=== PATIENT | female | born 1965 | race Caucasian/White ===

== ENCOUNTER 2018-07-27 14:45 | Inpatient (IN) | payer OTHER ==
[2018-07-27 14:53] VITALS: BMI 39.0
[2018-07-27] MEDS ORDERED: ALBUTEROL SO4 2.5/IPRATROPIUM 0.5 INH SOL 3 ML VIAL.NEB. NEB ONE ×3 (15:07→16:13)
[2018-07-27] MEDS ORDERED: methylPREDNISolone NA SUCC 125 MG/2 ML VIAL IVPB ONE (15:11)
[2018-07-27] MEDS: ALBUTEROL SO4 2.5/IPRATROPIUM 0.5 INH SOL 3 ML VIAL.NEB. NEB SCH ×4 (15:16→16:10)
[2018-07-27] MEDS ORDERED: methylPREDNISolone NA SUCC 125 MG/2 ML VIAL ONE (15:17)
[2018-07-27 15:32] LABS: BASO % 0.8 % (0-2.0); EOS % 2.6 % (0-4.5); HEMATOCRIT 38.9 % (32.4-45.2); HEMOGLOBIN 12.9 GM/dL (10.7-15.3); LYMPH % 25.2 % (8-40); MCH 27.8 pg (25.7-33.7); MCHC 33.2 g/dl (32.0-36.0); MEAN CELL VOLUME 83.6 fl (80-96); MEAN PLT VOLUME 8.1 fl (7.5-11.1); MONO % 5.3 % (3.8-10.2); NEUT % 66.1 % (42.8-82.8); PLATELET COUNT 265 K/MM3 (134-434); RBC 4.65 M/mm3 (3.60-5.2); RDW 16.2 % (11.6-15.6); WHITE BLOOD COUNT 10.6 K/mm3 (4.0-10.0)
--- NOTE | 2018-07-27 15:52 | PDOC ---
History of Present Illness - General Chief Complaint: Lightheaded Stated Complaint: DIZZINESS Time Seen by Provider: 07/27/18 14:59 History Source: Patient Exam Limitations: No Limitations - History of Present Illness Initial Comments: 07/27/18 15:24 Patient is 52F with history of asthma (hx of hospitalization, no icu, no intubations) here today complaining of shortness of breath that started last night. Patient also complains of feeling lightheaded after breathing rapidly. Endorses fevers, chills, nausea. Denies vomiting. Endorses chest pain and bodyaches. No sick contacts. No CHF history. Endorses leg swelling. Denies dysuria. Patient is active smoker. Past History - Past Medical History Allergies/Adverse Reactions: Allergies Allergy/AdvReac Type Severity Reaction Status Date / Time No Known Allergies Allergy Verified 07/27/18 14:52 Asthma: Yes COPD: No Psychiatric Problems: Yes (anxiety) Other medical history: arthritis - Suicide/Smoking/Psychosocial Hx Smoking History: Current every day smoker Number of Cigarettes Smoked Daily: 5 Information on smoking cessation initiated: No Review of Systems - Review of Systems Able to Perform ROS?: Yes Comments:: 07/27/18 15:52 GENERAL/CONSTITUTIONAL: +fever +chills. No weakness. HEAD, EYES, EARS, NOSE AND THROAT: No change in vision. No sore throat. CARDIOVASCULAR: +chest pain +shortness of breath RESPIRATORY: +cough, +wheezing, no hemoptysis. GASTROINTESTINAL: No nausea, vomiting, diarrhea or constipation. GENITOURINARY: No dysuria, frequency, or change in urination. MUSCULOSKELETAL: No joint or muscle swelling or pain. No neck or back pain. SKIN: No rash NEUROLOGIC: No headache, vertigo, loss of consciousness, or change in strength/ sensation. ALLERGIC/IMMUNOLOGIC: No hives or skin allergy. *Physical Exam - Vital Signs Last Vital Signs Temp Pulse Resp BP Pulse Ox 98.8 F 118 H 18 108/67 80 L 07/27/18 14:47 07/27/18 14:47 07/27/18 14:47 07/27/18 14:47 07/27/18 14:47 - Physical Exam Comments: 07/27/18 15:53 GENERAL: Awake, alert, and fully oriented, in no acute distress HEAD: No signs of trauma, normocephalic, atraumatic EYES: PERRLA, EOMI, sclera anicteric, conjunctiva clear ENT: Auricles normal inspection, hearing grossly normal, nares patent, oropharynx clear without exudates. Moist mucosa NECK: Normal ROM, supple, no lymphadenopathy, JVD, or masses LUNGS: No distress, speaks full sentences, wheezing and crackles bilaterally HEART: Regular rate and rhythm, normal S1 and S2, no murmurs, rubs or gallops, peripheral pulses normal and equal bilaterally. ABDOMEN: Soft, nontender, normoactive bowel sounds. No guarding, no rebound. No masses EXTREMITIES: Normal inspection, Normal range of motion, 2+ edema. No clubbing or cyanosis. NEUROLOGICAL: Cranial nerves II through XII grossly intact. Normal speech, normal gait, no focal sensorimotor deficits SKIN: Warm, Dry, normal turgor, no rashes or lesions noted. Moderate Sedation - Procedure Monitoring Vital Signs: Procedure Monitoring Vital Signs Temperature 98.8 F 07/27/18 14:47 Pulse Rate 118 H 07/27/18 14:47 Respiratory Rate 18 07/27/18 14:47 Blood Pressure 108/67 07/27/18 14:47 O2 Sat by Pulse Oximetry (%) 80 L 07/27/18 14:47 ED Treatment Course - LABORATORY CBC & Chemistry Diagram: 07/27/18 15:23 07/27/18 15:23 - RADIOLOGY Radiology Studies Ordered: Category Date Time Status CHEST X-RAY PORTABLE* [RAD] Stat Radiology 07/27/18 15:11 Ordered - Medications Given in the ED: ED Medications Discontinued Medications Generic Name Dose Route Start Last Admin Trade Name Freq PRN Reason Stop Dose Admin Methylprednisolone Sodium Succinate 125 mg 07/27/18 15:11 07/27/18 15:22 Solu-Medrol - IVPB 07/27/18 15:12 125 mg ONCE ONE Administration Medical Decision Making - Medical Decision Making 07/27/18 15:53 Patient is 52F with history of asthma here today with shortness of breath. Vitals notable for tachycardia during triage, normal HR during my exam. DDx includes, but is not limited to: asthma/copd, acs, chf, pneumonia, influenza. Will evaluate with cardiac labs, bnp, cxr. Will treat with duonebs and steroids. 07/27/18 16:40 CBC normal. CMP shows K 5.3, bnp elevated, cxr shows evidence of chf. Given lasix 20mg as she is lasix naive. D/w Dr Maynard, accepted to tele. 07/27/18 16:41 EKG shows sinus tach with rate of 102. No st elevations/depressions. Normal axis. No significant t wave abnormalities. Normal intervals. *DC/Admit/Observation/Transfer Diagnosis at time of Disposition: New onset of congestive heart failure - Discharge Dispostion Condition at time of disposition: Stable Decision to Admit order: Yes - Referrals - Patient Instructions - Post Discharge Activity
[2018-07-27 15:55] LABS: INR 1.08 (0.83-1.09); PROTHROMBIN TIME (PATIENT) 12.7 SEC (9.7-13.0)
[2018-07-27 15:57] LABS: ALBUMIN 2.9 g/dl (3.4-5.0); ALK PHOS 107 U/L (45-117); ANION GAP 3 MMOL/L (8-16); BILIRUBIN,TOTAL 0.3 mg/dL (0.2-1); BLOOD UREA NITROGEN 14 mg/dL (7-18); CALCIUM 8.4 mg/dL (8.5-10.1); CHLORIDE 98 mmol/L (98-107); CO2 35 mmol/L (21-32); CREATININE 0.4 mg/dL (0.55-1.3); GLUCOSE,RANDOM 110 mg/dL (74-106); N-TERMINAL BNP 809.6 pg/ml (5-125); POTASSIUM 5.3 mmol/L (3.5-5.1); SGOT/AST 37 U/L (15-37); SGPT/ALT 19 U/L (13-61); SODIUM 136 mmol/L (136-145); TOT PROT 7.4 g/dl (6.4-8.2)
--- NOTE | 2018-07-27 16:10 | PDOC ---
Attending Attestation - Resident Resident Name: EdithAlber - ED Attending Attestation I have performed the following: I have examined & evaluated the patient, The case was reviewed & discussed with the resident, I agree w/resident's findings & plan, Exceptions are as noted - HPI HPI: 07/27/18 16:10 The patient is a 52 year old female, with a significant past medical history of asthma, who presents to the emergency department with SOB and lightheadedness since last night. Pt endorses BLE swelling. Denies recent travel/ immobilization. Endorses intermittent chest pain as well. She denies recent fevers, chills, headache or dizziness. She denies recent nausea, vomit, diarrhea or constipation. She denies recent dysuria, frequency, urgency or hematuria. Allergies: NKDA - Physicial Exam PE: 07/27/18 16:11 "GENERAL: Awake, alert, and fully oriented, in no acute distress. HEAD: No signs of trauma EYES: PERRLA, EOMI, sclera anicteric, conjunctiva clear ENT: Auricles normal inspection, hearing grossly normal, nares patent, oropharynx clear without exudates. Moist mucosa NECK: Nontender, no stepoffs, Normal ROM, supple, no lymphadenopathy, JVD, or masses LUNGS: + bibasilar rales + wheezing HEART: Regular rate and rhythm, normal S1 and S2, no murmurs, rubs or gallops ABDOMEN: Soft, nontender, normoactive bowel sounds. No guarding, no rebound. No masses EXTREMITIES: +2 PE BLE, Normal range of motion, no edema. No clubbing or cyanosis. No cords, erythema, or tenderness NEUROLOGICAL: Cranial nerves II through XII intact. 5/5 strength and sensation in all extremities, Normal speech, normal gait, normal cerebellar function SKIN: Warm, Dry, normal turgor, no rashes or lesions noted. - Medical Decision Making 07/27/18 16:11 52 F with SOB, chest pain, and BLE swelling. Exam notable for pitting edema in both legs, as well as bibasilar rales. Suspicious for new CHF. Pt also with wheezing, likely 2/2 asthma/COPD. - labs, BNP, trop - CXR - Nebs - Lasix - Admit
[2018-07-27] MEDS ORDERED: FUROSEMIDE 40 MG/4 ML INJECTABLE VIAL IVPUSH ONE (16:19)
[2018-07-27] MEDS ORDERED: FUROSEMIDE 40 MG/4 ML INJECTABLE VIAL ONE (16:46)
--- NOTE | 2018-07-27 17:46 | HP ---
CHIEF COMPLAINT: SOB PCP: [facility] HISTORY OF PRESENT ILLNESS: 52 y/o F w/PMH of anxiety, RA, asthma, diabetes, hx of opioid addiction on methadone presents to the ER with SOB that started suddenly 2 days ago and has been progressively worsening. She also reports dry cough, fevers, body aches, chest tightness with no radiation, fevers, chills, nausea, but no vomiting, increased UE and LE swelling. The LE swelling started 4 days ago and has been progressively worsening as well. She also has the SOB at both rest and with exertion and last night was not able to lay flat due to SOB and needed to sleep in a seated position. She also c/o severe LIZAMA. She denies any recent travel or sick contacts. ER course was notable for: (1) Duoneb X4, Lasix IV 20 mg, Solu-medrol 125 mg (2) CXR (3) Recent Travel: Denies PAST MEDICAL HISTORY:anxiety, RA, asthma, diabetes, hx of opioid addiction on methadone PAST SURGICAL HISTORY: Denies Social History: Smoking: current everyday smoker. Smokes 1 pack every 5-6 days for approx last 15 years. Alcohol: Denies Drugs: Denies Family History: Denies Allergies No Known Allergies Allergy (Verified 07/27/18 14:52) HOME MEDICATIONS: Home Medications Medication Instructions Recorded Budesonide/Formeterol Fumarate 1 puff IN DAILY 07/27/18 [SYMBICORT 160/4.5mcg -] Paroxetine HCl [Paxil] 20 mg PO DAILY 07/27/18 Risperidone 2 mg PO BID 07/27/18 REVIEW OF SYSTEMS CONSTITUTIONAL: +fevers, chills, generalized weakness HEENT: +visual changes from "funny feeling around eyes" CARDIOVASCULAR: +chest tightness, peripheral edema RESPIRATORY: +cough, sob, KELLOGG, orthopnea, wheezing GASTROINTESTINAL: +mild abd pain, nausea, constipation Absent: vomiting GENITOURINARY: +frequency Absent: dysuria, hematuria MUSCULOSKELETAL: +body aches NEUROLOGIC: +headache PHYSICAL EXAMINATION Vital Signs - 24 hr 07/27/18 07/27/18 07/27/18 14:47 16:00 17:18 Temperature 98.8 F 98.8 F Pulse Rate 118 H Pulse Rate [ 118 H Apical] Respiratory 18 22 H Rate Blood Pressure 108/67 Blood Pressure 117/91 [Left Arm] O2 Sat by Pulse 80 L 98 99 Oximetry (%) GENERAL: Awake, alert, and fully oriented, in no acute distress. Speaking in complete sentences. HEAD: Normal with no signs of trauma. EYES: Pupils equal, round and reactive to light, extraocular movements intact, sclera anicteric, conjunctiva clear. EARS, NOSE, THROAT: Ears normal, nares patent, oropharynx clear without exudates. NECK: Normal range of motion, supple. No LAD. LUNGS: B/L wheezing and crackles HEART: Tachycardic, S1 S2, difficult to appreciate murmurs over wheezing. ABDOMEN: Soft, mild diffuse tenderness, not distended, normoactive bowel sounds MSK: 5/5 UE and LE strength UPPER EXTREMITIES: increased fluid retention in b/l UE. Pus filled lesions on arms and axillary areas. LOWER EXTREMITIES: warm, well-perfused. No calf tenderness. 2+ pitting b/l LE edema NEUROLOGICAL: Cranial nerves II-XII grossly intact. Normal speech. Gait not observed. PSYCHIATRIC: Cooperative. Good eye contact. Appropriate mood and affect. SKIN: Warm, dry Laboratory Results - last 24 hr 07/27/18 07/27/18 07/27/18 15:23 15:23 15:23 WBC 10.6 H RBC 4.65 Hgb 12.9 Hct 38.9 MCV 83.6 MCH 27.8 MCHC 33.2 RDW 16.2 H Plt Count 265 MPV 8.1 Absolute Neuts (auto) 7.0 Neutrophils % 66.1 Lymphocytes % 25.2 Monocytes % 5.3 Eosinophils % 2.6 Basophils % 0.8 Nucleated RBC % 0 PT with INR 12.70 INR 1.08 Sodium 136 Potassium 5.3 H Chloride 98 Carbon Dioxide 35 H Anion Gap 3 L BUN 14 Creatinine 0.4 L Creat Clearance w eGFR > 60 Random Glucose 110 H Calcium 8.4 L Magnesium 2.0 Total Bilirubin 0.3 AST 37 ALT 19 Alkaline Phosphatase 107 Creatine Kinase 206 H Creatine Kinase Index 1.4 CK-MB (CK-2) 2.9 Troponin I < 0.02 B-Natriuretic Peptide 809.6 H Total Protein 7.4 Albumin 2.9 L Influenza A (Rapid) Influenza B (Rapid) 07/27/18 15:23 WBC RBC Hgb Hct MCV MCH MCHC RDW Plt Count MPV Absolute Neuts (auto) Neutrophils % Lymphocytes % Monocytes % Eosinophils % Basophils % Nucleated RBC % PT with INR INR Sodium Potassium Chloride Carbon Dioxide Anion Gap BUN Creatinine Creat Clearance w eGFR Random Glucose Calcium Magnesium Total Bilirubin AST ALT Alkaline Phosphatase Creatine Kinase Creatine Kinase Index CK-MB (CK-2) Troponin I B-Natriuretic Peptide Total Protein Albumin Influenza A (Rapid) Negative Influenza B (Rapid) Negative CXR: B/L angles not clearly visualized/blunted. Fullness in hilum. B/l congestive changes. Pending official read EKG: Sinus tachycardia @ 102bpm. QTc 484 ms ASSESSMENT/PLAN: 52 y/o F w/PMH of anxiety, RA, asthma, diabetes presents to the ER with SOB that started suddenly 2 days ago and has been progressively worsening. Admitted for possible new onset CHF w/acute asthma exacerbation and to r/o nephrotic syndrome. CALLED patients pharmacy but the pharmacy is closed. Will need to med rec when pharmacy or [facility] is open. I have also told the patient and her son to bring her list of medications in as soon as possible. -SOB secondary to possible new onset CHF vs viral URI w/superimposed asthma exacerbation -Lasix 40 mg IV qd -Solumedrol 40 mg bid -Duonebs standing and PRN -RSV and respiratory viral panel -tylenol for fever or pain -Echo -cardiology consult -fluid restriction -trend trop, initial negative -Peripheral edema -secondary to new onset CHF vs nephrotic syndrome -Albumin low at 2.9 -UA, urine protein to Cr ratio -Severe headache -Tylenol PRN -Head CT -Hidradenitis Suppurativa -Axillary region -Surgery consult for possible I&D -Diabetes -A1C -ISS, BGMS ACHS -Anxiety/Depression -c/w paroxetine, risperidone -DVT ppx -Lovenox -FEN -No fluids -Hyperkalemia, will repeat BMP s/p duonebs. If elevated will give kayexelate -Low salt diet -Dispo: Admit to tele Visit type - Emergency Visit Emergency Visit: Yes Care time: The patient presented to the Emergency Department on the above date and was hospitalized for further evaluation of their emergent condition. - New Patient This patient is new to me today: Yes Date on this admission: 07/27/18 - Critical Care Critical Care patient: No
--- NOTE | 2018-07-27 17:51 | PN ---
Teaching Attending Note Name of Resident: Jean Maynard ATTENDING PHYSICIAN STATEMENT I saw and evaluated the patient. I reviewed the resident's note and discussed the case with the resident. I agree with the resident's findings and plan as documented. SUBJECTIVE: CC: SOB and swelling HPI: 52 y/o lady with h/o Asthma, Anxiety, and arthritis, who presented with SOB x 2 days. she has been having gradual worsening in SOB and LE edema x 1 week. with dry cough. yesterday it got worse and inhalers did not work. she reports increase in her weight over past month or so, and reports worsening swelling in her hands and arms. she had a fever of 101 yesterday. active smoker and compliant with her meds. she sleeps on 3 pillows and this is chronic she reports urinating a lot , but no dysuria. she has LIZAMA that started yesterday 03/13 , with no double vision but blurry vision. has no weakness, numbness or tingling. reports no abd pain. Has pumps on her elbows that fills up with pus and her son pops them. she also has similar lesions in her axillary areas . OBJECTIVE: NAD , awake,alert and oriented x 3. HEENT: symmetric face, no facial droop. erythematous oropharynx .no tonsils . MMM, slight fullness in jugular veins. No lymphadenopathy in submandibular area and jugular chains. has enlarged lymph node ( 1cm ) in L supraclavicular area , non tender and mobile under skin CV: RRR, + hepato jugular reflux Lungs : course breath sounds, wheezing and fine crackles at bases ext : 2+ edema on LE , ciara scaly skin on feet with scratch meek. hand edema. papular rash on posterior upper arms and scratch meek. cystic lesion 2x1 cm on R elbow with a scab , with 2 smaller similar lesions on L elbow. Axillary areas with thick skin, non draining old opening, no erythema and no tenderness. neuro : EOMi, round equal pupils,m reactive to light , no facial droop, tongue and uvula at mid line . strength 5/5 in upper and lower extremities proximally and distally. reflexes 2+ knee jerl and biceps b/l ASSESSMENT AND PLAN: 52 y/o lady with h/o Asthma, Anxiety, and arthritis ( no specific diagnosis ) ,h /o drug use , on methadone and active smoker who presented with SOB x 2 days. 1- SOB : likely due to combination of Asthma exacerbation, and fluid overload. Fluid overload could be due to acute heart failure ( core pulmonale, or viral cardiomyopathy), or due to nephrotic syndrome. EKG with sinus rhythm, RBBB, and L axis . No ST or TW changes.Cxray reviewed. hilar congestion, possible small R pleural effusion, and cephalization. final report to follow she responded to steroids and lasix in ER. - give solu-Merdol 40 BID - Nebs - echo - lasix 40 daily. - rapid flu neg, check RVP - r/o nephrotic syndrome, check UA , and Protein /Cr . - Trend trop . low suspicion for ACS 2- Hyperkalemia: unclear etiology. will confirm her edu meds list and evaluate for possible medication side effects. - repeat K, if cont to increase will treat - nebs will help 3- Skin abscesses on arms: will start clinda and ask sx to drain, and send for culture. clinda will help resolving hydradenitis suppurativa . 4- LIZAMA ; new, severe, nL neuro exam. check head CT. give tylenol for pain 5- L supraclavicular lymph node. she was advised to follow with GI for EGd to r /o any gastric origin ( malignancy ). Anxiety: cont her meds 4- DVT px : will start lovenox if CT is neg for bleed
[2018-07-27] MEDS ORDERED: ACETAMINOPHEN 325 MG TABLET (FP) PO ONE (18:02)
[2018-07-27] MEDS ORDERED: ALBUTEROL SO4 2.5/IPRATROPIUM 0.5 INH SOL 3 ML VIAL.NEB. NEB PRN (18:09)
[2018-07-27] MEDS ORDERED: CLINDAMYCIN 300 MG PREMIX IVPB 300 MG/50 ML BAG IVPB SCH (19:00)
[2018-07-27] MEDS ORDERED: CLINDAMYCIN IVPB 300 MG in DEXTROSE 5%-WATER - 48 ML IVPB SCH (19:00)
--- NOTE | 2018-07-27 21:57 | EKG ---
Test Reason : Blood Pressure : / mmHG Vent. Rate : 102 BPM Atrial Rate : 102 BPM P-R Int : 140 ms QRS Dur : 082 ms QT Int : 372 ms P-R-T Axes : 054 041 035 degrees QTc Int : 484 ms SINUS TACHYCARDIA POSSIBLE LEFT ATRIAL ENLARGEMENT BORDERLINE ECG NO PREVIOUS ECGS AVAILABLE Confirmed by ANAYA OCAMPO MD ([id number]) on 07/27/2018 9:56:59 PM Referred By: Confirmed By:ANAYA OCAMPO MD
[2018-07-27] MEDS ORDERED: risperiDONE 2 MG TABLET PO SCH (22:00)
[2018-07-27] MEDS ORDERED: CLINDAMYCIN HCL 300 MG CAPSULE PO SCH (22:00)
[2018-07-27] MEDS ORDERED: IBUPROFEN 400 MG TABLET (FP) PO ONE (23:41)
[2018-07-28] MEDS: risperiDONE 1 MG TABLET (FP) PO SCH ×3 (00:14→22:11)
[2018-07-28] MEDS: methylPREDNISolone NA SUCC 125 MG/2 ML VIAL IVPUSH SCH ×3 (00:15→23:13)
[2018-07-28] MEDS: INSULIN SLIDING SCALE (NOVOLOG) 1 VIAL SQ SCH ×5 (00:20→23:12)
[2018-07-28] MEDS ORDERED: PT OWN MED DRAWER 7, Y5N ONE (06:45)
[2018-07-28] MEDS: CLINDAMYCIN HCL 150 MG CAPSULE (FP) PO SCH ×3 (06:51→22:11)
[2018-07-28 06:59] LABS: BASO % 0.2 % (0-2.0); HEMATOCRIT 37.4 % (32.4-45.2); HEMOGLOBIN 12.1 GM/dL (10.7-15.3); LYMPH % 9.1 % (8-40); MCH 26.9 pg (25.7-33.7); MCHC 32.4 g/dl (32.0-36.0); MEAN PLT VOLUME 8.1 fl (7.5-11.1); MONO % 2.6 % (3.8-10.2); NEUT % 88.1 % (42.8-82.8); PLATELET COUNT 270 K/MM3 (134-434); RDW 16.2 % (11.6-15.6); WHITE BLOOD COUNT 10.8 K/mm3 (4.0-10.0)
[2018-07-28 07:39] LABS: ALBUMIN 2.8 g/dl (3.4-5.0); ALK PHOS 111 U/L (45-117); ANION GAP 4 MMOL/L (8-16); BILIRUBIN,TOTAL 0.3 mg/dL (0.2-1); BLOOD UREA NITROGEN 13 mg/dL (7-18); CALCIUM 8.4 mg/dL (8.5-10.1); CHLORIDE 97 mmol/L (98-107); CO2 37 mmol/L (21-32); CREATININE 0.5 mg/dL (0.55-1.3); GLUCOSE,RANDOM 163 mg/dL (74-106); MAGNESIUM 1.9 mg/dL (1.8-2.4); PHOSPHOROUS 2.6 mg/dL (2.5-4.9); POTASSIUM 4.3 mmol/L (3.5-5.1); SGOT/AST 10 U/L (15-37); SGPT/ALT 16 U/L (13-61); SODIUM 138 mmol/L (136-145); TOT PROT 6.9 g/dl (6.4-8.2)
[2018-07-28] MEDS: ALBUTEROL SO4 2.5/IPRATROPIUM 0.5 INH SOL 3 ML VIAL.NEB. NEB SCH ×4 (08:20→23:12)
[2018-07-28] MEDS ORDERED: ENOXAPARIN NA (PORCINE) 40 MG/0.4 ML DISP.SYRIN SQ SCH (10:00)
[2018-07-28 10:10] LABS: URINE APPEARANCE CLEAR; URINE BILIRUBIN NEGATIVE (<2.0 mg/dL); URINE COLOR YELLOW; URINE GLUCOSE (UA) NEGATIVE (NEGATIVE); URINE KETONE NEGATIVE (NEGATIVE); URINE LEUK ESTERASE NEGATIVE (NEGATIVE); URINE NITRITE NEGATIVE (NEGATIVE); URINE PROTEIN NEGATIVE (NEGATIVE)
[2018-07-28 10:14] LABS: RATIO URIN PROTEIN/URIN CREAT 0.23 MG/DL
[2018-07-28 10:23] LABS: COCAINE, UR NEGATIVE ng/ml (CUTOFF=300); OPIATES, URI NEGATIVE ng/ml (CUTOFF=300); PHENCYCLIDINE,URINE NEGATIVE ng/ml (CUTOFF=25); URINE AMPHETAMINES NEGATIVE ng/ml (CUTOFF=500); URINE BARBITURATES NEGATIVE ng/ml (CUTOFF=200)
[2018-07-28] MEDS: FUROSEMIDE 40 MG/4 ML INJECTABLE VIAL IVPUSH SCH ×2 (10:24→12:39)
[2018-07-28] MEDS: PARoxetine HCL 20 MG TABLET (FP) PO SCH (10:24)
[2018-07-28 10:29] LABS: METHADONE, UR POSITIVE ng/ml (CUTOFF=300); URINE BENZODIAZEPINES POSITIVE ng/ml (CUTOFF=200)
[2018-07-28] MEDS ORDERED: METHADONE HCL 10 MG TABLET PO ONE (10:58)
[2018-07-28] MEDS ORDERED: METHADONE 40 MG, METHADONE 10 MG, METHADONE 5 MG PO ONE (11:30)
[2018-07-28] MEDS ORDERED: METHADONE HCL 5 MG TABLET ONE (11:31)
[2018-07-28] MEDS ORDERED: METHADONE HCL 40 MG DISPERSABLE TABLET ONE (11:31)
[2018-07-28] MEDS ORDERED: METHADONE HCL 10 MG TABLET ONE (11:32)
[2018-07-28] MEDS ORDERED: FUROSEMIDE 20 MG TABLET (FP) PO ONE (11:36)
--- NOTE | 2018-07-28 12:53 | CON.CARD ---
Consult Consult Specialty:: cardiology Referred by:: Silviano Reason for Consultation:: Shortness of breath - History of Present Illness Chief Complaint: Shortness of breath History of Present Illness: The patient is a 52-year-old obese female, with a history of mild asthma, likely diabetes, now presenting with generalized body aches, cough, shortness of breath, fevers and lethargy. The patient is in mild respiratory distress. Also reported periods of chest tightness and pressure and discomfort. The patient leads a sedentary lifestyle. She reports no chest pains on effort. Only chronic dyspnea on effort. - History Source History Provided By: Patient, Medical Record Limitations to Obtaining History: No Limitations - Past Medical History Pulmonary: Yes: Asthma - Alcohol/Substance Use Hx Alcohol Use: No - Smoking History Smoking history: Current every day smoker Have you smoked in the past 12 months: Yes Aproximately how many cigarettes per day: 5 Home Medications - Allergies Allergies/Adverse Reactions: Allergies Allergy/AdvReac Type Severity Reaction Status Date / Time No Known Allergies Allergy Verified 07/27/18 14:52 - Home Medications Home Medications: Ambulatory Orders Budesonide/Formeterol Fumarate [SYMBICORT 160/4.5mcg -] 1 puff IN DAILY Methadone [Dolophine -] 55 mg PO DAILY 07/27/18 Paroxetine HCl [Paxil] 20 mg PO DAILY 07/27/18 Risperidone 2 mg PO BID 07/27/18 Review of Systems - Review of Systems Constitutional: reports: Chills, Fever, Lethargy, Malaise Eyes: reports: No Symptoms HENT: reports: No Symptoms Neck: reports: No Symptoms Cardiovascular: reports: Shortness of Breath Respiratory: reports: Cough, SOB Gastrointestinal: reports: Bloating Genitourinary: reports: No Symptoms Breasts: reports: No Symptoms Reported Musculoskeletal: reports: Back Pain Integumentary: reports: No Symptoms Neurological: reports: No Symptoms Endocrine: reports: No Symptoms Hematology/Lymphatic: reports: No Symptoms Psychiatric: reports: No Symptoms Vital Signs: Vital Signs Temperature 98 F 07/28/18 09:36 Pulse Rate 103 H 07/28/18 09:36 Respiratory Rate 20 07/28/18 09:36 Blood Pressure 116/68 07/28/18 09:36 O2 Sat by Pulse Oximetry (%) 99 07/27/18 19:00 Constitutional: Yes: No Distress, Obese Eyes: Yes: WNL, Conjunctiva Clear, EOM Intact HENT: Yes: WNL, Atraumatic, Normocephalic Neck: Yes: WNL, Supple, Trachea Midline Respiratory: Yes: Regular, Rhonchi, SOB, Wheezes Gastrointestinal: Yes: WNL, Normal Bowel Sounds, Soft Renal/: Yes: WNL Cardiovascular: Yes: WNL, Regular Rate and Rhythm, Tachycardia JVD: No Carotid Bruit: No PMI: Non-Displaced Heart Sounds: Yes: S1, S2 Murmur: Yes: Systolic Murmur, Grade 2 Musculoskeletal: Yes: Back Pain, Joint Stiffness Extremities: Yes: WNL Edema: Yes Edema: LLE: Trace, RLE: Trace Peripheral Pulses WNL: Yes Integumentary: Yes: WNL Neurological: Yes: WNL, Alert, Oriented ...Motor Strength: WNL - Other Data Labs, Other Data: CBC, BMP 07/28/18 05:30 07/28/18 05:30 INR, PTT INR 1.08 (0.83-1.09) 07/27/18 15:23 Troponin, BNP 07/27/18 15:23 Troponin I < 0.02 B-Natriuretic Peptide 809.6 H Troponin, BNP 07/27/18 15:23 Troponin I < 0.02 B-Natriuretic Peptide 809.6 H Assessment/Plan The patient is a 52-year-old obese female, with a history of mild asthma, likely diabetes, now presenting with generalized body aches, cough, shortness of breath, fevers and lethargy. The patient is in mild respiratory distress. Also reported periods of chest tightness and pressure and discomfort. The patient leads a sedentary lifestyle. She reports no chest pains on effort. Only chronic dyspnea on effort. There is no evidence of ischemia nor acute coronary syndrome. No CHF. The patient is in sinus tachycardia. There are no acute ECG changes. Incomplete right bundle branch block noted. Please arrange for pulmonary evaluation. Obtain echo. Continue current regimen. Continue telemetry for the time being. The patient is stable from the cardiac standpoint.
--- NOTE | 2018-07-28 14:56 | PN ---
Progress Note (short form) - Note Progress Note: Subjective: SOB is better, no fever or chills, no CP. anxious and wants her methadone and psych meds and request pain meds Objective: Vital Signs: Last Vital Signs Temp Pulse Resp BP Pulse Ox 98 F 103 H 20 116/68 93 L 07/28/18 09:36 07/28/18 09:36 07/28/18 09:36 07/28/18 09:36 07/28/18 09:00 Laboratory Results - last 24 hr 07/27/18 07/27/18 07/27/18 15:23 15:23 15:23 WBC 10.6 H RBC 4.65 Hgb 12.9 Hct 38.9 MCV 83.6 MCH 27.8 MCHC 33.2 RDW 16.2 H Plt Count 265 MPV 8.1 Absolute Neuts (auto) 7.0 Neutrophils % 66.1 Lymphocytes % 25.2 Monocytes % 5.3 Eosinophils % 2.6 Basophils % 0.8 Nucleated RBC % 0 PT with INR 12.70 INR 1.08 Sodium 136 Potassium 5.3 H Chloride 98 Carbon Dioxide 35 H Anion Gap 3 L BUN 14 Creatinine 0.4 L Creat Clearance w eGFR > 60 POC Glucometer Random Glucose 110 H Hemoglobin A1c % Calcium 8.4 L Phosphorus Magnesium 2.0 Total Bilirubin 0.3 AST 37 ALT 19 Alkaline Phosphatase 107 Creatine Kinase 206 H Creatine Kinase Index 1.4 CK-MB (CK-2) 2.9 Troponin I < 0.02 B-Natriuretic Peptide 809.6 H Total Protein 7.4 Albumin 2.9 L Urine Color Urine Appearance Urine pH Ur Specific [place] Urine Protein Urine Glucose (UA) Urine Ketones Urine Blood Urine Nitrite Urine Bilirubin Urine Urobilinogen Ur Leukocyte Esterase U Random Total Protein Ur Random Sodium Urine Creatinine Protein/Creatinin Ratio Opiates Screen Methadone Screen Barbiturate Screen Phencyclidine Screen Ur Amphetamines Screen MDMA (Ecstasy) Screen Benzodiazepines Screen Cocaine Screen U Marijuana (THC) Screen Influenza A (Rapid) Influenza B (Rapid) RSV Rapid 07/27/18 07/27/18 07/28/18 15:23 23:46 05:30 WBC 10.8 H RBC 4.50 Hgb 12.1 Hct 37.4 MCV 83.0 MCH 26.9 MCHC 32.4 RDW 16.2 H Plt Count 270 MPV 8.1 Absolute Neuts (auto) 9.6 H Neutrophils % 88.1 H D Lymphocytes % 9.1 D Monocytes % 2.6 L Eosinophils % 0.0 D Basophils % 0.2 Nucleated RBC % 0 PT with INR INR Sodium Potassium Chloride Carbon Dioxide Anion Gap BUN Creatinine Creat Clearance w eGFR POC Glucometer 281 Random Glucose Hemoglobin A1c % Calcium Phosphorus Magnesium Total Bilirubin AST ALT Alkaline Phosphatase Creatine Kinase Creatine Kinase Index CK-MB (CK-2) Troponin I B-Natriuretic Peptide Total Protein Albumin Urine Color Urine Appearance Urine pH Ur Specific [place] Urine Protein Urine Glucose (UA) Urine Ketones Urine Blood Urine Nitrite Urine Bilirubin Urine Urobilinogen Ur Leukocyte Esterase U Random Total Protein Ur Random Sodium Urine Creatinine Protein/Creatinin Ratio Opiates Screen Methadone Screen Barbiturate Screen Phencyclidine Screen Ur Amphetamines Screen MDMA (Ecstasy) Screen Benzodiazepines Screen Cocaine Screen U Marijuana (THC) Screen Influenza A (Rapid) Negative Influenza B (Rapid) Negative RSV Rapid 07/28/18 07/28/18 07/28/18 05:30 05:30 06:00 WBC RBC Hgb Hct MCV MCH MCHC RDW Plt Count MPV Absolute Neuts (auto) Neutrophils % Lymphocytes % Monocytes % Eosinophils % Basophils % Nucleated RBC % PT with INR INR Sodium 138 Potassium 4.3 Chloride 97 L Carbon Dioxide 37 H Anion Gap 4 L BUN 13 Creatinine 0.5 L Creat Clearance w eGFR > 60 POC Glucometer Random Glucose 163 H Hemoglobin A1c % 6.5 H Calcium 8.4 L Phosphorus 2.6 Magnesium 1.9 Total Bilirubin 0.3 AST 10 L ALT 16 Alkaline Phosphatase 111 Creatine Kinase Creatine Kinase Index CK-MB (CK-2) Troponin I B-Natriuretic Peptide Total Protein 6.9 Albumin 2.8 L Urine Color Yellow Urine Appearance Clear Urine pH 8.0 Ur Specific [place] 1.018 Urine Protein Negative Urine Glucose (UA) Negative Urine Ketones Negative Urine Blood Negative Urine Nitrite Negative Urine Bilirubin Negative Urine Urobilinogen 2.0 H Ur Leukocyte Esterase Negative U Random Total Protein Ur Random Sodium Urine Creatinine Protein/Creatinin Ratio Opiates Screen Methadone Screen Barbiturate Screen Phencyclidine Screen Ur Amphetamines Screen MDMA (Ecstasy) Screen Benzodiazepines Screen Cocaine Screen U Marijuana (THC) Screen Influenza A (Rapid) Influenza B (Rapid) RSV Rapid 07/28/18 07/28/18 07/28/18 06:00 06:00 06:24 WBC RBC Hgb Hct MCV MCH MCHC RDW Plt Count MPV Absolute Neuts (auto) Neutrophils % Lymphocytes % Monocytes % Eosinophils % Basophils % Nucleated RBC % PT with INR INR Sodium Potassium Chloride Carbon Dioxide Anion Gap BUN Creatinine Creat Clearance w eGFR POC Glucometer Random Glucose Hemoglobin A1c % Calcium Phosphorus Magnesium Total Bilirubin AST ALT Alkaline Phosphatase Creatine Kinase Creatine Kinase Index CK-MB (CK-2) Troponin I B-Natriuretic Peptide Total Protein Albumin Urine Color Urine Appearance Urine pH Ur Specific [place] Urine Protein Urine Glucose (UA) Urine Ketones Urine Blood Urine Nitrite Urine Bilirubin Urine Urobilinogen Ur Leukocyte Esterase U Random Total Protein 24.9 H Ur Random Sodium 74 Urine Creatinine 104.0 Protein/Creatinin Ratio 0.230 Opiates Screen Negative Methadone Screen Positive A* Barbiturate Screen Negative Phencyclidine Screen Negative Ur Amphetamines Screen Negative MDMA (Ecstasy) Screen Negative Benzodiazepines Screen Positive A* Cocaine Screen Negative U Marijuana (THC) Screen Negative Influenza A (Rapid) Influenza B (Rapid) RSV Rapid Negative 07/28/18 06:41 WBC RBC Hgb Hct MCV MCH MCHC RDW Plt Count MPV Absolute Neuts (auto) Neutrophils % Lymphocytes % Monocytes % Eosinophils % Basophils % Nucleated RBC % PT with INR INR Sodium Potassium Chloride Carbon Dioxide Anion Gap BUN Creatinine Creat Clearance w eGFR POC Glucometer 158 Random Glucose Hemoglobin A1c % Calcium Phosphorus Magnesium Total Bilirubin AST ALT Alkaline Phosphatase Creatine Kinase Creatine Kinase Index CK-MB (CK-2) Troponin I B-Natriuretic Peptide Total Protein Albumin Urine Color Urine Appearance Urine pH Ur Specific [place] Urine Protein Urine Glucose (UA) Urine Ketones Urine Blood Urine Nitrite Urine Bilirubin Urine Urobilinogen Ur Leukocyte Esterase U Random Total Protein Ur Random Sodium Urine Creatinine Protein/Creatinin Ratio Opiates Screen Methadone Screen Barbiturate Screen Phencyclidine Screen Ur Amphetamines Screen MDMA (Ecstasy) Screen Benzodiazepines Screen Cocaine Screen U Marijuana (THC) Screen Influenza A (Rapid) Influenza B (Rapid) RSV Rapid Physical Exam: NAD , awake,alert and oriented x 3. CV: RRR, no JVD Lungs : course breath sounds, wheezing , no crackles today ext : resolved edema on LE and hands . papular rash on posterior upper arms and scratch meek. cystic lesion 2x1 cm on R elbow with a scab , with 2 smaller similar lesions on L elbow. Axillary areas with thick skin, non draining old opening, no erythema and no tenderness. ASSESSMENT AND PLAN: 52 y/o lady with h/o Asthma, Anxiety, and arthritis ( no specific diagnosis ) ,h /o drug use , on methadone and active smoker who presented with SOB x 2 days. 1- Acute asthma exacerbation SOB: - cont steroids - cont nebs - add symbicort - follow RVP 2- Mild fluid overload, significantly responded to lasix, and edema has resolved. - give 20 mg of lasix today - holdlasix after this - echo pending - P/C ration of 230 mg /24 hr, no nephrotic syndrome - check TSH 3- hyperkalemia ; resolved 4- Skin abscesses on arms: cont clinda sx eval dfor drainage clinda will help resolving hydradenitis suppurativa . 5- LIZAMA ;resolved. CT of head neg 5- L supraclavicular lymph node. she was advised to follow with GI for EGd to r /o any gastric malignancy 6-Methadne dependence : cont methadone 55 mg daily 7- elevated sugars: check A1c 8- DVT px : start lovenox Visit type - Emergency Visit Emergency Visit: Yes ED Registration Date: 07/27/18 Care time: The patient presented to the Emergency Department on the above date and was hospitalized for further evaluation of their emergent condition. - New Patient This patient is new to me today: No - Critical Care Critical Care patient: No
[2018-07-28] MEDS: ENOXAPARIN NA (PORCINE) 40 MG/0.4 ML DISP.SYRIN SQ SCH (19:01)
[2018-07-28] MEDS: BUDESONIDE/FORMETEROL FUMARATE 160/4.5 mcg INHALER IH SCH (22:45)
[2018-07-29] MEDS: CLINDAMYCIN HCL 150 MG CAPSULE (FP) PO SCH ×3 (06:07→21:58)
[2018-07-29] MEDS: INSULIN SLIDING SCALE (NOVOLOG) 1 VIAL SQ SCH ×3 (06:08→17:04)
[2018-07-29] MEDS ORDERED: PT OWN MED DRAWER 7, Y5N ONE ×4 (06:38→21:25)
[2018-07-29 06:39] LABS: ANION GAP 1 MMOL/L (8-16); BLOOD UREA NITROGEN 17 mg/dL (7-18); CALCIUM 8.1 mg/dL (8.5-10.1); CHLORIDE 100 mmol/L (98-107); CO2 40 mmol/L (21-32); CREATININE 0.6 mg/dL (0.55-1.3); GLUCOSE,RANDOM 130 mg/dL (74-106); POTASSIUM 4.7 mmol/L (3.5-5.1); SODIUM 140 mmol/L (136-145)
[2018-07-29] MEDS: ALBUTEROL SO4 2.5/IPRATROPIUM 0.5 INH SOL 3 ML VIAL.NEB. NEB SCH (07:40)
--- NOTE | 2018-07-29 08:04 | PN ---
Physical Exam: SUBJECTIVE: Patient seen and examined at bedside- no acute events overnight; patient states her shortness of breath is improving however is still having some chest pressure OBJECTIVE: Vital Signs Period Temp Pulse Resp BP Sys/Ortiz Pulse Ox Last 24 Hr 98 F-98.9 F 94-121 18-20 106-136/42-82 91-93 GENERAL: The patient is awake, alert, and fully oriented, in no acute distress.. EYES: PEERLA; EOMI: no scleral icterus. NECK: no JVD; no lymphadenopathy. LUNGS:coarse breath sounds B/L; slight wheezes HEART: Regular rate and rhythm, S1, S2 without murmur, rub or gallop. ABDOMEN: Soft, nontender, nondistended, normoactive bowel sounds, no guarding, no rebound, no hepatosplenomegaly, no masses. EXTREMITIES: 2+ pulses, warm, well-perfused, trace LE edema. UPPER EXTREMITIES: elbows: b/l cysts with fluid NEUROLOGICAL: Cranial nerves II through XII grossly intact. Normal speech, gait not observed. PSYCH: Normal mood, normal affect. SKIN: Warm, dry, normal turgor, no rashes or lesions noted Laboratory Results - last 24 hr 07/28/18 07/28/18 07/28/18 06:00 06:00 06:00 Sodium Potassium Chloride Carbon Dioxide Anion Gap BUN Creatinine Creat Clearance w eGFR POC Glucometer Random Glucose Calcium TSH Urine Color Yellow Urine Appearance Clear Urine pH 8.0 Ur Specific [place] 1.018 Urine Protein Negative Urine Glucose (UA) Negative Urine Ketones Negative Urine Blood Negative Urine Nitrite Negative Urine Bilirubin Negative Urine Urobilinogen 2.0 H Ur Leukocyte Esterase Negative U Random Total Protein 24.9 H Ur Random Sodium 74 Urine Creatinine 104.0 Protein/Creatinin Ratio 0.230 Opiates Screen Negative Methadone Screen Positive A* Barbiturate Screen Negative Phencyclidine Screen Negative Ur Amphetamines Screen Negative MDMA (Ecstasy) Screen Negative Benzodiazepines Screen Positive A* Cocaine Screen Negative U Marijuana (THC) Screen Negative RSV Rapid 07/28/18 07/28/18 07/28/18 06:24 17:27 21:15 Sodium Potassium Chloride Carbon Dioxide Anion Gap BUN Creatinine Creat Clearance w eGFR POC Glucometer 243 143 Random Glucose Calcium TSH Urine Color Urine Appearance Urine pH Ur Specific [place] Urine Protein Urine Glucose (UA) Urine Ketones Urine Blood Urine Nitrite Urine Bilirubin Urine Urobilinogen Ur Leukocyte Esterase U Random Total Protein Ur Random Sodium Urine Creatinine Protein/Creatinin Ratio Opiates Screen Methadone Screen Barbiturate Screen Phencyclidine Screen Ur Amphetamines Screen MDMA (Ecstasy) Screen Benzodiazepines Screen Cocaine Screen U Marijuana (THC) Screen RSV Rapid Negative 07/29/18 07/29/18 05:30 06:05 Sodium 140 Potassium 4.7 Chloride 100 Carbon Dioxide 40 H Anion Gap 1 L BUN 17 Creatinine 0.6 Creat Clearance w eGFR > 60 POC Glucometer 136 Random Glucose 130 H Calcium 8.1 L TSH 1.09 Urine Color Urine Appearance Urine pH Ur Specific [place] Urine Protein Urine Glucose (UA) Urine Ketones Urine Blood Urine Nitrite Urine Bilirubin Urine Urobilinogen Ur Leukocyte Esterase U Random Total Protein Ur Random Sodium Urine Creatinine Protein/Creatinin Ratio Opiates Screen Methadone Screen Barbiturate Screen Phencyclidine Screen Ur Amphetamines Screen MDMA (Ecstasy) Screen Benzodiazepines Screen Cocaine Screen U Marijuana (THC) Screen RSV Rapid Active Medications Generic Name Dose Route Start Last Admin Trade Name Freq PRN Reason Stop Dose Admin Acetaminophen 650 mg 07/27/18 19:10 Tylenol - PO Q6H PRN HEADACHE Albuterol/Ipratropium 1 amp 07/27/18 20:00 07/28/18 23:12 Duoneb - NEB 1 amp RQID JOSEPH Administration Albuterol/Ipratropium 1 amp 07/27/18 18:09 Duoneb - NEB Q6H PRN SHORTNESS OF BREATH Budesonide/Formoterol Fumarate 2 puff 07/28/18 22:00 07/28/18 22:45 Symbicort 160/4.5mcg - IH 2 puff BID JOSEPH Administration Clindamycin HCl 300 mg 07/28/18 06:00 07/29/18 06:07 Cleocin - PO 300 mg TID JOSEPH Administration Enoxaparin Sodium 40 mg 07/28/18 15:15 07/28/18 19:01 Lovenox - SQ 40 mg DAILY JOSEPH Administration Insulin Aspart 1 vial 07/27/18 22:00 07/29/18 06:08 Novolog Vial Sliding Scale - SQ Not Given ACHS [facility] Protocol Methylprednisolone Sodium Succinate 40 mg 07/27/18 22:00 07/28/18 23:13 Solu-Medrol - IVPUSH 40 mg BID JOSEPH Administration Paroxetine HCl 20 mg 07/28/18 10:00 02/24/19 10:24 Paxil - PO 20 mg DAILY JOSEPH Administration Risperidone 2 mg 07/27/18 23:45 07/28/18 22:11 Risperdal - PO 2 mg BID JOSEPH Administration ASSESSMENT/PLAN: 52 y/o F w/PMH of anxiety, RA, asthma, diabetes presents to the ER with SOB that started suddenly 2 days ago and has been progressively worsening. Admitted for possible new onset CHF w/acute asthma exacerbation and to r/o nephrotic syndrome-SOB secondary to possible new onset CHF vs viral URI w/superimposed asthma exacerbation -Solumedrol 40 mg bid -albuterol nebs with mucinex -RSV negative -awaiting respiratory viral panel -tylenol for fever or pain -Echo -fluid restriction -Peripheral edema -secondary to new onset CHF vs nephrotic syndrome -Albumin low at 2.9 -protein:Cr 230/24 -Severe headache -Tylenol PRN -Head CT negative -Hidradenitis Suppurativa -Axillary region -Surgery consult; no surgical intervention at this time -Diabetes -A1C 6.5 -ISS, BGMS ACHS -will start metformin as outpatient -Anxiety/Depression -c/w paroxetine, risperidone -DVT ppx -Lovenox -FEN -No fluids -Hyperkalemia, will repeat BMP s/p duonebs. If elevated will give kayexelate -Low salt diet Visit type - Emergency Visit Emergency Visit: Yes ED Registration Date: 07/27/18 Care time: The patient presented to the Emergency Department on the above date and was hospitalized for further evaluation of their emergent condition. - New Patient This patient is new to me today: Yes Date on this admission: 07/29/18 - Critical Care Critical Care patient: No
[2018-07-29] MEDS ORDERED: METHADONE HCL 10 MG TABLET PO ONE (09:35)
[2018-07-29] MEDS ORDERED: ALBUTEROL SO4 8 GM HFA INHALER IH PRN (09:53)
[2018-07-29] MEDS ORDERED: METHADONE HCL 5 MG TABLET ONE (09:54)
[2018-07-29] MEDS ORDERED: METHADONE HCL 40 MG DISPERSABLE TABLET ONE (09:54)
[2018-07-29] MEDS ORDERED: FUROSEMIDE 20 MG TABLET (FP) PO SCH (10:00)
[2018-07-29] MEDS: ENOXAPARIN NA (PORCINE) 40 MG/0.4 ML DISP.SYRIN SQ SCH (10:02)
[2018-07-29] MEDS: methylPREDNISolone NA SUCC 125 MG/2 ML VIAL IVPUSH SCH ×2 (10:03→21:59)
[2018-07-29] MEDS: PARoxetine HCL 20 MG TABLET (FP) PO SCH (10:03)
[2018-07-29] MEDS: METHADONE 40 MG, METHADONE 15 MG PO SCH (10:03)
[2018-07-29] MEDS: POLYETHYLENE GLYCOL 3350 119 GM BTL PO SCH ×2 (10:04→21:58)
[2018-07-29] MEDS: risperiDONE 1 MG TABLET (FP) PO SCH ×2 (10:04→21:58)
[2018-07-29] MEDS: BUDESONIDE/FORMETEROL FUMARATE 160/4.5 mcg INHALER IH SCH ×2 (10:06→21:59)
--- NOTE | 2018-07-29 11:31 | CONSULT ---
- Consultation REQUESTING PROVIDER: CONSULT REQUEST: We have been asked to surgically evaluate this patient for ( Hidradenitis Suppurativa). PCP:Olga Lidia Shore HISTORY OF PRESENT ILLNESS: 52 y/o F w/ PMHx anxiety, RA, asthma, diabetes, hx of opioid addiction on methadone, admitted 07/27 with SOB. General surgery consulted for evaluation of Hidradenitis Suppurativa. Pt reports pain and/or drainage from multiple areas ( under R arm, right and left elbows/forearms and right inner thigh) for the past few months. Has not been to her PCP, however reports a prior visit to the ER ( [facility]SH) where she had an I&D done, is unsure if she was sent home with abx or not. States she cleans the areas at home with alcohol/peroxide and applies lotions and antibiotic creams. Reports no improvement. Endorses fevers/chills at home prior to admission, 100.2 orally. Denies n/v/d, prior h/o abscess, h/o MRSA, sick contacts or travel. PMHx: as above PSHx: denies Home Medications Medication Instructions Recorded Budesonide/Formeterol Fumarate 1 puff IN DAILY 07/27/18 [SYMBICORT 160/4.5mcg -] Methadone [Dolophine -] 55 mg PO DAILY 07/27/18 Paroxetine HCl [Paxil] 20 mg PO DAILY 07/27/18 Risperidone 2 mg PO BID 07/27/18 Allergies Allergy/AdvReac Type Severity Reaction Status Date / Time No Known Allergies Allergy Verified 07/27/18 14:52 REVIEW OF SYSTEMS: CONSTITUTIONAL: +fever, chills CARDIOVASCULAR: Absent: chest pain RESPIRATORY: Absent: cough, shortness of breath GASTROINTESTINAL: Absent: abdominal pain PHYSICAL EXAM: GENERAL: Awake, alert, and fully oriented, in no acute distress. HEAD: Normal with no signs of trauma. UPPER EXTREMITIES: R axilla with multiple small areas of induration, one small sinus track laterally with scant serosanguinous drainage. L Axilla with multiple small areas of induration, no drainage. No fluctuance appreciated. R elbow with approx 2x2 circular ?cyst with + purulent drainage expressed. L elbow with dried nodule, no purulence expressed, no ttp, no fluctance. Multiple small nodules b/l forearms, no purulence expressed, no flactuance. No cellulitis appreciated, no ttp. LOWER EXTREMITIES: R inner thigh with approx 2x2cm circular area of hyperpigmentation and induration at inner thigh, no erythema or drainage. Vital Signs Temperature 98.2 F 07/29/18 01:18 Pulse Rate 94 H 07/29/18 01:18 Respiratory Rate 18 07/29/18 07:49 Blood Pressure 136/82 07/29/18 01:18 O2 Sat by Pulse Oximetry (%) 93 L 07/29/18 07:49 Lab Results WBC 10.8 K/mm3 (4.0-10.0) H 07/28/18 05:30 RBC 4.50 M/mm3 (3.60-5.2) 07/28/18 05:30 Hgb 12.1 GM/dL (10.7-15.3) 07/28/18 05:30 Hct 37.4 % (32.4-45.2) 07/28/18 05:30 MCV 83.0 fl (80-96) 07/28/18 05:30 MCHC 32.4 g/dl (32.0-36.0) 07/28/18 05:30 RDW 16.2 % (11.6-15.6) H 07/28/18 05:30 Plt Count 270 K/MM3 (134-434) 07/28/18 05:30 Sodium 140 mmol/L (136-145) 07/29/18 05:30 Potassium 4.7 mmol/L (3.5-5.1) 07/29/18 05:30 Chloride 100 mmol/L (98-107) 07/29/18 05:30 Carbon Dioxide 40 mmol/L (21-32) H 07/29/18 05:30 Anion Gap 1 MMOL/L (8-16) L 07/29/18 05:30 BUN 17 mg/dL (7-18) 07/29/18 05:30 Creatinine 0.6 mg/dL (0.55-1.3) 07/29/18 05:30 Random Glucose 130 mg/dL (74-106) H 07/29/18 05:30 Calcium 8.1 mg/dL (8.5-10.1) L 07/29/18 05:30 INR 1.08 (0.83-1.09) 07/27/18 15:23 A/P: 52 y/o F w/ PMHx anxiety, RA, asthma, diabetes, hx of opioid addiction on methadone, admitted 07/27 with SOB. General surgery consulted for evaluation of Hidradenitis Suppurativa. Pt with multiple ?infected cysts over arms/elbows. No abcess appreciated in axilla. -No acute surgical intervention at this time -Recommend Hibiclens showers -Can do local wound care to sites with NS and Bacitracin ointment -Consider MRSA nasal swab for assessment of colonization d/w attending Dr Guillory
--- NOTE | 2018-07-29 13:52 | ECHO ---
Name: MARIBELL PIEDRA Exam:Adult Echocardiogram Study Date: 07/29/2018 11:51 AM Age: 52 yrs Reason For Study: new onset CHF Height: 60 in Weight: 200 lb BSA: 1.9 m2 Procedure A complete two-dimensional transthoracic echocardiogram was performed (2D, M-mode, Doppler and color flow Doppler). Technically limited study. Left Ventricle The left ventricle is normal in size. Left ventricular systolic function is normal. Ejection Fraction = 60- 65%. Grade I diastolic dysfunction, (abnormal relaxation pattern). Ratio E/E'= 12. No regional wall m otion abnormalities noted. Right Ventricle The right ventricle is not well visualized. RV function could not be accurately assessed due to fores hortened view. Atria The left atrial size is normal. Right atrial size is normal. Mitral Valve The mitral valve is normal in structure and function. There is no mitral regurgitation noted. Tricuspid Valve The tricuspid valve is normal in structure and function. No tricuspid regurgitation. Aortic Valve The aortic valve is normal in structure and function. No aortic regurgitation is present. Pulmonic Valve The pulmonic valve is not well visualized. Mild pulmonic valvular regurgitation. Great Vessels The aortic root is normal size. Pericardium/Pleura There is no pericardial effusion. Interpretation Summary Technically limited study The left ventricle is normal in size. Left ventricular systolic function is normal. No regional wall motion abnormalities noted. Ejection Fraction = 60-65%. Grade I diastolic dysfunction, (abnormal relaxation pattern). Ratio E/E'= 12 RV function could not be accurately assessed due to foreshortened view. The right ventricle is not well visualized. The left atrial size is normal. Right atrial size is normal. Mild pulmonic valvular regurgitation. There is no pericardial effusion. Previous study is not available for comparison Nigel Lopez MD 07/29/2018 01:52 PM
--- NOTE | 2018-07-29 13:55 | PN ---
Progress Note, Physician Chief Complaint: still with sob on minimal exertion, chest heaviness on breathing and speaking. tele sinus tachycardia. History of Present Illness: The patient is a 52-year-old obese female, with a history of mild asthma, likely diabetes, now presenting with generalized body aches, cough, shortness of breath, fevers and lethargy. The patient is in mild respiratory distress. Also reported periods of chest tightness and pressure and discomfort. The patient leads a sedentary lifestyle. She reports no chest pains on effort. Only chronic dyspnea on effort. There is no evidence of ischemia nor acute coronary syndrome. No CHF. The patient is in sinus tachycardia. There are no acute ECG changes. Incomplete right bundle branch block noted. Echo 07/29/18 preliminary normal EF, normal RV. - Current Medication List Current Medications: Active Medications Acetaminophen (Tylenol -) 650 mg PO Q6H PRN PRN Reason: HEADACHE Acetylcysteine (Mucomyst 20 Oral / Inh Use Only*) 600 mg NEB RBID [facility] Albuterol Sulfate (Ventolin Hfa Inhaler -) 2 puff IH Q4H PRN PRN Reason: SHORT OF BREATH/WHEEZING Budesonide/Formoterol Fumarate (Symbicort 160/4.5mcg -) 2 puff IH BID [facility] Last Admin: 07/29/18 10:06 Dose: 2 puff Clindamycin HCl (Cleocin -) 300 mg PO TID [facility] Last Admin: 07/29/18 06:07 Dose: 300 mg Enoxaparin Sodium (Lovenox -) 40 mg SQ DAILY [facility] Last Admin: 07/29/18 10:02 Dose: 40 mg Insulin Aspart (Novolog Vial Sliding Scale -) 1 vial SQ [facility]; Protocol Last Admin: 07/29/18 11:17 Dose: Not Given Methadone HCl 40 mg/ Methadone (HCl 15 mg) 55 mg PO 0600 [facility] Last Admin: 07/29/18 10:03 Dose: 55 mg Methylprednisolone Sodium Succinate (Solu-Medrol -) 40 mg IVPUSH BID [facility] Last Admin: 07/29/18 10:03 Dose: 40 mg Paroxetine HCl (Paxil -) 20 mg PO DAILY [facility] Last Admin: 07/29/18 10:03 Dose: 20 mg Polyethylene Glycol (Miralax (For Daily Use) -) 17 gm PO BID [facility] Last Admin: 02/25/19 10:04 Dose: 17 grams Risperidone (Risperdal -) 2 mg PO BID JOSE[facility] Last Admin: 07/29/18 10:04 Dose: 2 mg - Objective Vital Signs: Vital Signs Temperature 98.2 F 07/29/18 01:18 Pulse Rate 94 H 07/29/18 01:18 Respiratory Rate 18 07/29/18 07:49 Blood Pressure 136/82 07/29/18 01:18 O2 Sat by Pulse Oximetry (%) 93 L 07/29/18 07:49 Constitutional: Yes: No Distress, Calm Eyes: Yes: Conjunctiva Clear, EOM Intact HENT: Yes: Atraumatic, Normocephalic Neck: Yes: Trachea Midline Cardiovascular: Yes: Regular Rate and Rhythm, Tachycardia Respiratory: Yes: Accessory Muscle Use, Wheezes (bilat expiratory.) Gastrointestinal: Yes: Soft, Abdomen, Obese Musculoskeletal: Yes: WNL Extremities: Yes: WNL Edema: Yes Edema: LLE: Trace, RLE: Trace Labs: CBC, BMP 07/28/18 05:30 07/29/18 05:30 INR, PTT INR 1.08 (0.83-1.09) 07/27/18 15:23 Assessment/Plan The patient is a 52-year-old obese female, with a history of mild asthma, likely diabetes, now presenting with generalized body aches, cough, shortness of breath, fevers and lethargy. The patient is in mild respiratory distress. Also reported periods of chest tightness and pressure and discomfort. The patient leads a sedentary lifestyle. She reports no chest pains on effort. Only chronic dyspnea on effort. There is no evidence of ischemia nor acute coronary syndrome. No CHF. The patient is in sinus tachycardia. There are no acute ECG changes. Incomplete right bundle branch block noted. Needs pulmonary evaluation given wheezing, pleuritic cp and sinus tachycardia with hypoxia. Echo is unremarkable. There is no evidence of CHF. DC telemetry. The patient is stable from the cardiac standpoint. Will see as needed.
--- NOTE | 2018-07-29 18:02 | PN ---
Teaching Attending Note Name of Resident: Sarai Lorenzo ATTENDING PHYSICIAN STATEMENT I saw and evaluated the patient. I reviewed the resident's note and discussed the case with the resident. I agree with the resident's findings and plan as documented. SUBJECTIVE: No fever or chills. No abd pain. SOB has improved 70% today. slight LIZAMA , no visual changes OBJECTIVE: NAD, awake,alert and oriented x 3. CV: RRR, no JVD Lungs : course breath sounds, wheezing ext : resolved edema on LE and hands . papular rash on posterior upper arms and scratch meek. cystic lesion 2x1 cm on R elbow with a scab , with 2 smaller similar lesions on L elbow. ASSESSMENT AND PLAN: 52 y/o lady with h/o Asthma, Anxiety, and arthritis ( no specific diagnosis ) ,h /o drug use , on methadone and active smoker who presented with SOB x 2 days. 1- Acute asthma exacerbation: symptomatically improved ( 70% per patient) hypoxia improved compared to admission, No suspicion for PNA , no suspicion for PE ( WELLS score for PE 1.5) - cont steroids at current dose - add mucomyst Nebs - cont nebs - cont symbicort - follow RVP - add BIPAP at HS due to suspected JACKIE , and need sleep study as out pt - pulmonary eval 2- Mild fluid overload, significantly responded to lasix, and edema has resolved. echo with diastolic dysfunction , davey had mild acute diastolic heart failure , now euvolemic - hold off lasix - monitor volume status 3- hyperkalemia ; resolved 4- Skin abscesses on elbow and hydradenitis suppurativa in axillae: cont clinda sx eval noted hydradenitis suppurativa . 5- LIZAMA;improved CT of head neg cont tylenol PRN 5- L supraclavicular lymph node. she was advised to follow with GI for EGd to r /o any gastric malignancy 6-Methadne dependence : cont methadone 55 mg daily. dose confirmed today 7- new onset DM. PT was educated about Dm, diet, compliance and f/u with subspecialties including podiatry and ophth. d/w her metformin at al and she agreed and aware of side effects will do diabetic teaching and dietitian consult 8- DVT px : lovenox HLOC
[2018-07-29] MEDS ORDERED: ALBUTEROL SO4 0.083% IH SOL 2.5 MG/3 ML VIAL.NEB. NEB PRN (18:17)
[2018-07-29] MEDS: ALBUTEROL SO4 0.083% IH SOL 2.5 MG/3 ML VIAL.NEB. NEB SCH (19:41)
[2018-07-29] MEDS: ACETYLCYSTEINE 20% 200MG/ML 30 ML VIAL *FOR ORAL / INH USE ONLY NEB SCH (19:41)
[2018-07-29] MEDS: BACITRACIN 15 GM TUBE TOPICAL OINTMENT TP SCH (21:57)
[2018-07-29] MEDS ORDERED: CHLORHEXIDINE GLUCONATE 4% CLEANSER FOR DECOLONIZATION TP SCH (22:00)
[2018-07-30] MEDS ORDERED: METHADONE HCL 40 MG DISPERSABLE TABLET ONE (05:20)
[2018-07-30] MEDS ORDERED: METHADONE HCL 5 MG TABLET ONE (05:20)
[2018-07-30] MEDS ORDERED: METHADONE HCL 40 MG DISPERSABLE TABLET PO SCH (06:00)
[2018-07-30] MEDS: CLINDAMYCIN HCL 150 MG CAPSULE (FP) PO SCH ×3 (06:24→22:02)
[2018-07-30] MEDS: INSULIN SLIDING SCALE (NOVOLOG) 1 VIAL SQ SCH ×3 (06:24→18:00)
[2018-07-30] MEDS: METHADONE 40 MG, METHADONE 15 MG PO SCH (06:25)
[2018-07-30] MEDS: ACETYLCYSTEINE 20% 200MG/ML 30 ML VIAL *FOR ORAL / INH USE ONLY NEB SCH ×2 (07:30→21:00)
[2018-07-30] MEDS: ALBUTEROL SO4 0.083% IH SOL 2.5 MG/3 ML VIAL.NEB. NEB SCH ×4 (07:30→21:00)
[2018-07-30 07:59] LABS: HEMATOCRIT 38.9 % (32.4-45.2); HEMOGLOBIN 12.5 GM/dL (10.7-15.3); MCH 26.7 pg (25.7-33.7); MEAN CELL VOLUME 83.6 fl (80-96); MEAN PLT VOLUME 8.1 fl (7.5-11.1); PLATELET COUNT 289 K/MM3 (134-434); RBC 4.66 M/mm3 (3.60-5.2); RDW 16.2 % (11.6-15.6)
[2018-07-30 08:57] LABS: ANION GAP 9 MMOL/L (8-16); BLOOD UREA NITROGEN 17 mg/dL (7-18); CALCIUM 8.1 mg/dL (8.5-10.1); CHLORIDE 97 mmol/L (98-107); CO2 32 mmol/L (21-32); CREATININE 0.5 mg/dL (0.55-1.3); GLUCOSE,RANDOM 135 mg/dL (74-106); MAGNESIUM 2.3 mg/dL (1.8-2.4); PHOSPHOROUS 4.1 mg/dL (2.5-4.9); POTASSIUM 4.5 mmol/L (3.5-5.1); SODIUM 138 mmol/L (136-145)
[2018-07-30] MEDS: PARoxetine HCL 20 MG TABLET (FP) PO SCH (10:45)
[2018-07-30] MEDS: ENOXAPARIN NA (PORCINE) 40 MG/0.4 ML DISP.SYRIN SQ SCH (10:45)
[2018-07-30] MEDS: methylPREDNISolone NA SUCC 125 MG/2 ML VIAL IVPUSH SCH (10:46)
[2018-07-30] MEDS: BACITRACIN 15 GM TUBE TOPICAL OINTMENT TP SCH ×2 (10:46→22:02)
[2018-07-30] MEDS: BUDESONIDE/FORMETEROL FUMARATE 160/4.5 mcg INHALER IH SCH (10:46)
[2018-07-30] MEDS: risperiDONE 1 MG TABLET (FP) PO SCH ×2 (10:47→22:02)
--- NOTE | 2018-07-30 13:14 | PN ---
Progress Note (short form) - Note Progress Note: PULMONARY CONSULTATION DICTATED 07/20/18 IMP ACUTE HYPOXEMIC RESPIRATORY FAILURE ASTHMA/COPD EXACERBATION ? PNEUMONIA DIASTOLIC DYSFUNCTION LIKELY OSAS DM TOBACCO ABUSE PLAN IV STEROIDS INHALED BRONCHODILATORS ABX SUPPLEMENTAL O2 CHEST CT D-DIMER IF ELEVATED CHEST CTA SMOKING CESSATION COUNSELED SLEEP SCREEN ZIGGY CASTILLO Problem List - Problems (1) Acute hypoxemic respiratory failure Code(s): J96.01 - ACUTE RESPIRATORY FAILURE WITH HYPOXIA (2) Pneumonia Code(s): J18.9 - PNEUMONIA, UNSPECIFIED ORGANISM (3) Tobacco abuse Code(s): Z72.0 - TOBACCO USE (4) Tobacco abuse counseling Code(s): Z71.6 - TOBACCO ABUSE COUNSELING (5) Diabetes Code(s): E11.9 - TYPE 2 DIABETES MELLITUS WITHOUT COMPLICATIONS (6) COPD exacerbation Code(s): J44.1 - CHRONIC OBSTRUCTIVE PULMONARY DISEASE W (ACUTE) EXACERBATION (7) Asthma Code(s): J45.909 - UNSPECIFIED ASTHMA, UNCOMPLICATED
[2018-07-30] MEDS ORDERED: ALBUTEROL SO4 2.5/IPRATROPIUM 0.5 INH SOL 3 ML VIAL.NEB. NEB PRN (13:24)
--- NOTE | 2018-07-30 13:55 | PN ---
Physical Exam: SUBJECTIVE: Patient seen and examined at bedside- states her breathing is not improved; she is still short of breath and having chest pressure OBJECTIVE: Vital Signs Period Temp Pulse Resp BP Sys/Ortiz Pulse Ox Last 24 Hr 97.8 F-98.1 F 78-100 20-20 106-161/57-92 94-97 GENERAL: The patient is awake, alert, and fully oriented, in no acute distress.. EYES:PEERLA; EOMI; no scleral icterus NECK: no JVD; no lymphadenopathy LUNGS: coarse breath sounds B/L; no wheezes. HEART: Regular rate and rhythm, S1, S2 without murmur, rub or gallop. ABDOMEN: Soft, nontender, nondistended, normoactive bowel sounds, no guarding, no rebound, no hepatosplenomegaly, no masses. EXTREMITIES: 2+ pulses, warm, well-perfused, trace edema. . PSYCH: Normal mood, normal affect. SKIN: Warm, dry, normal turgor, no rashes or lesions noted Laboratory Results - last 24 hr 07/29/18 07/29/18 07/30/18 16:57 22:05 06:20 WBC RBC Hgb Hct MCV MCH MCHC RDW Plt Count MPV Sodium Potassium Chloride Carbon Dioxide Anion Gap BUN Creatinine Creat Clearance w eGFR POC Glucometer 173 130 133 Random Glucose Calcium Phosphorus Magnesium 07/30/18 07/30/18 07/30/18 06:22 06:40 06:40 WBC 11.0 H RBC 4.66 Hgb 12.5 Hct 38.9 MCV 83.6 MCH 26.7 MCHC 32.0 RDW 16.2 H Plt Count 289 MPV 8.1 Sodium 138 Potassium 4.5 Chloride 97 L Carbon Dioxide 32 Anion Gap 9 BUN 17 Creatinine 0.5 L Creat Clearance w eGFR > 60 POC Glucometer 145 Random Glucose 135 H Calcium 8.1 L Phosphorus 4.1 Magnesium 2.3 07/30/18 12:14 WBC RBC Hgb Hct MCV MCH MCHC RDW Plt Count MPV Sodium Potassium Chloride Carbon Dioxide Anion Gap BUN Creatinine Creat Clearance w eGFR POC Glucometer 125 Random Glucose Calcium Phosphorus Magnesium Active Medications Generic Name Dose Route Start Last Admin Trade Name Freq PRN Reason Stop Dose Admin Acetaminophen 650 mg 07/27/18 19:10 Tylenol - PO Q6H PRN HEADACHE Acetylcysteine 600 mg 07/29/18 20:00 07/30/18 07:30 Mucomyst 20 Oral / Inh Use Only* NEB 600 mg RBID JOSEPH Administration Albuterol Sulfate 1 amp 07/29/18 20:00 07/30/18 11:49 Ventolin 0.083% Nebulizer Soln - NEB 1 amp RQID JOSEPH Administration Albuterol Sulfate 1 amp 07/29/18 18:17 Ventolin 0.083% Nebulizer Soln - NEB Q6H PRN SHORT OF BREATH/WHEEZING Albuterol/Ipratropium 1 amp 07/30/18 13:24 Duoneb - NEB Q4H PRN SHORTNESS OF BREATH Bacitracin 1 applic 07/29/18 22:00 07/30/18 10:46 Bacitracin - TP 1 applic BID JOSEPH Administration Chlorhexidine Gluconate 1 applic 07/29/18 22:00 Hibiclens For Decolonization - TP HS JOSEPH Clindamycin HCl 300 mg 07/28/18 06:00 07/30/18 06:24 Cleocin - PO 300 mg TID JOSEPH Administration Enoxaparin Sodium 40 mg 07/28/18 15:15 07/30/18 10:45 Lovenox - SQ 40 mg DAILY JOSEPH Administration Insulin Aspart 1 vial 07/30/18 07:00 07/30/18 06:24 Novolog Vial Sliding Scale - SQ Not Given TIDAC [facility] Protocol Methadone HCl 40 mg/ Methadone 55 mg 07/29/18 10:00 07/30/18 06:25 HCl 15 mg PO 55 mg 0600 JOSEPH Administration Methylprednisolone Sodium Succinate 60 mg 07/30/18 15:00 Solu-Medrol - IVPUSH Q6H-IV JOSEPH Paroxetine HCl 20 mg 07/28/18 10:00 07/30/18 10:45 Paxil - PO 20 mg DAILY JOSEPH Administration Polyethylene Glycol 17 gm 07/29/18 10:00 07/29/18 21:58 Miralax (For Daily Use) - PO 17 grams BID JOSEPH Administration Risperidone 2 mg 07/27/18 23:45 07/30/18 10:47 Risperdal - PO 2 mg BID JOSEPH Administration ASSESSMENT/PLAN: 52 y/o F w/PMH of anxiety, RA, asthma, diabetes presents to the ER with SOB that started suddenly 2 days ago and has been progressively worsening. Admitted for possible new onset CHF w/acute asthma exacerbation and to r/o nephrotic syndrome-SOB secondary to possible new onset CHF vs viral URI w/superimposed asthma exacerbation -Solumedrol 60 mg q6h -duonebs PRN -RSV negative -awaiting respiratory viral panel -tylenol for fever or pain -f/u d-dimer; if elevated CTA; if normal than CT chest -fluid restriction -azithromycin -f/u pre and post -Peripheral edema -secondary to new onset CHF vs nephrotic syndrome -Albumin low at 2.9 -protein:Cr 230/24- -Severe headache -Tylenol PRN -Head CT negative -Hidradenitis Suppurativa -Axillary region -Surgery consult; no surgical intervention at this time -Diabetes -A1C 6.5 -ISS, BGMS ACHS -will start metformin as outpatient -Anxiety/Depression -c/w paroxetine, risperidone -DVT ppx -Lovenox -FEN -No fluids -monitor electrolytes -Low salt diet Problem List - Problems (1) Acute hypoxemic respiratory failure Code(s): J96.01 - ACUTE RESPIRATORY FAILURE WITH HYPOXIA (2) Asthma Code(s): J45.909 - UNSPECIFIED ASTHMA, UNCOMPLICATED (3) COPD exacerbation Code(s): J44.1 - CHRONIC OBSTRUCTIVE PULMONARY DISEASE W (ACUTE) EXACERBATION (4) Diabetes Code(s): E11.9 - TYPE 2 DIABETES MELLITUS WITHOUT COMPLICATIONS Visit type - Emergency Visit Emergency Visit: Yes ED Registration Date: 07/27/18 Care time: The patient presented to the Emergency Department on the above date and was hospitalized for further evaluation of their emergent condition. - New Patient This patient is new to me today: No - Critical Care Critical Care patient: No
--- NOTE | 2018-07-30 13:57 | CONS ---
DATE OF CONSULTATION: 07/30/2018 REFERRING PHYSICIAN: Olga Lidia Shore MD HISTORY: The patient is a 52-year-old white female with past medical history of anxiety, chronic asthma, likely COPD, rheumatoid arthritis, diabetes, history of opioid addiction maintained on methadone admitted to [facility] with complaint of a 2-day history of increasing shortness of breath and dyspnea on exertion. The patient states approximately 3-4 days prior to admission she developed cough, fevers, generalized body aches, and chest tightness. On day of admission while playing with a grandchild developed severe shortness of breath associated with cough, wheezing at which time she presented to the emergency room. In the ER, she was felt to have possible CHF versus COPD. She was started on inhaled bronchodilators and Lasix and transferred up to the medical floor for further management. The patient has a history of smoking 1 pack every 4-5 days for approximately 15 years. She has no recent travel. There is no history of occupational exposure to chemicals or fumes. She denies any weight loss or night sweats. There is no history of pneumonia. She does have a history of previous hospitalizations secondary to asthma exacerbations. REVIEW OF SYSTEMS: Positive dyspnea, positive cough, positive wheezing, positive chest tightness. Positive fever, positive chills. No nausea, no vomiting, no hemoptysis, no abdominal pain. Positive lower extremity edema. MEDICATIONS: Prior to admission include albuterol inhaler. Current medications include Cleocin, bacitracin, Lovenox, Paxil, Risperdal, albuterol, MiraLAX, NovoLog, heparin, Mucomyst, and methadone. PHYSICAL EXAMINATION: General: The patient is an obese white female well developed, awake, alert in no acute distress. Vital Signs: She is afebrile. Blood pressure 109/62, respiratory rate 20, O2 saturation 83% on room air. HEENT: Normocephalic and atraumatic. Neck: Supple. Heart: Regular. S1, S2. Chest: Diffuse bilateral wheezes. Abdomen: Soft. Bowel sounds positive. Extremities: No cyanosis or edema. DIAGNOSTIC DATA: Labs: WBC 11, hemoglobin 12.5, hematocrit 38.9 with a platelet count of 289,000, INR 1.08, BUN 17, creatinine 0.5. BNP is elevated at 809. Chest x-ray reveals nodular changes in the upper lobe. There is a fullness in the right perihilar region. Echocardiogram has mild diastolic dysfunction. IMPRESSION: 1. Acute hypoxemic respiratory failure secondary to likely acute asthma/chronic obstructive pulmonary disease exacerbation. 2. R/O pneumonia. 3. R/O PE 4. Diastolic dysfunction. 5. Likely obstructive sleep apnea. 6. Diabetes. 7. Tobacco abuse. 8. History of substance abuse. PLAN: Intravenous steroids, inhaled bronchodilators, antibiotics, supplemental O2. CT scan of the chest. Obtain D-dimer. If elevated, would recommend a CTA of the chest to rule out PE. Smoking cessation counseled. Obtain sleep screen. GOSIA CASTILLO M.D. [id number] MTDD
[2018-07-30] MEDS ORDERED: AZITHROMYCIN IVPB 500 MG/250 ML BAG IVPB SCH (15:15)
[2018-07-30] MEDS ORDERED: PT OWN MED DRAWER 7, Y5N ONE (15:28)
[2018-07-30] MEDS: methylPREDNISolone NA SUCC 40 MG/1 ML VIAL IVPUSH SCH ×2 (15:30→21:30)
--- NOTE | 2018-07-30 20:09 | PN ---
Teaching Attending Note Name of Resident: Sarai Lorenzo ATTENDING PHYSICIAN STATEMENT I saw and evaluated the patient. I reviewed the resident's note and discussed the case with the resident. I agree with the resident's findings and plan as documented. SUBJECTIVE: breathing much improved. denies CP OBJECTIVE: NAD, awake,alert and oriented x 3. CV: RRR, no JVD Lungs : course breath sounds, no wheezing. prolonged exp phase ext : resolved edema on LE and hands . cystic lesion 2x1 cm on R elbow with a scab , with 2 smaller similar lesions on L elbow draining blood now . ASSESSMENT AND PLAN: 52 y/o lady with h/o Asthma, Anxiety, and arthritis ( no specific diagnosis ) ,h /o drug use , on methadone and active smoker who presented with SOB x 2 days. 1- Acute asthma exacerbation: symptomatically improved Appreciate Pulm help - cont steroids - follow CTA - cont Nebs - BIPAp at night - need sleep study 2- Mild fluid overload, significantly responded to lasix, and edema has resolved. echo with diastolic dysfunction , likely had mild acute diastolic heart failure , now euvolemic - hold off lasix - monitor volume status 3- hyperkalemia ; resolved 4- Skin abscesses on elbow and hydradenitis suppurativa in axillae: cont clinda , for total of 7 day s sx eval noted 5- LIZAMA;improved .CT of head neg cont tylenol PRN 5- L supraclavicular lymph node. she was advised to follow with GI for EGd to r /o any gastric malignancy 6-Methadone dependence : cont methadone 55 mg daily. 7- New onset DM. start metformin at dc 8- DVT px : lovenox HLOC
[2018-07-30] MEDS: POLYETHYLENE GLYCOL 3350 119 GM BTL PO SCH (22:01)
[2018-07-31] MEDS: methylPREDNISolone NA SUCC 40 MG/1 ML VIAL IVPUSH SCH ×4 (02:32→17:32)
[2018-07-31] MEDS ORDERED: METHADONE HCL 40 MG DISPERSABLE TABLET ONE (05:45)
[2018-07-31] MEDS ORDERED: METHADONE HCL 5 MG TABLET ONE (05:46)
[2018-07-31] MEDS: INSULIN SLIDING SCALE (NOVOLOG) 1 VIAL SQ SCH ×3 (06:13→16:31)
[2018-07-31] MEDS: CLINDAMYCIN HCL 150 MG CAPSULE (FP) PO SCH ×3 (06:14→21:24)
[2018-07-31] MEDS: METHADONE 40 MG, METHADONE 15 MG PO SCH (06:14)
[2018-07-31 06:36] LABS: HEMATOCRIT 40.5 % (32.4-45.2); HEMOGLOBIN 13.1 GM/dL (10.7-15.3); MCH 26.7 pg (25.7-33.7); MCHC 32.2 g/dl (32.0-36.0); MEAN CELL VOLUME 82.9 fl (80-96); MEAN PLT VOLUME 7.7 fl (7.5-11.1); PLATELET COUNT 283 K/MM3 (134-434); RBC 4.89 M/mm3 (3.60-5.2); RDW 16.3 % (11.6-15.6); WHITE BLOOD COUNT 11.3 K/mm3 (4.0-10.0)
[2018-07-31 06:58] LABS: ANION GAP 4 MMOL/L (8-16); BLOOD UREA NITROGEN 16 mg/dL (7-18); CALCIUM 8.4 mg/dL (8.5-10.1); CHLORIDE 97 mmol/L (98-107); CO2 36 mmol/L (21-32); CREATININE 0.5 mg/dL (0.55-1.3); GLUCOSE,RANDOM 137 mg/dL (74-106); MAGNESIUM 2.6 mg/dL (1.8-2.4); PHOSPHOROUS 4.2 mg/dL (2.5-4.9); POTASSIUM 4.7 mmol/L (3.5-5.1); SODIUM 137 mmol/L (136-145)
[2018-07-31] MEDS: POLYETHYLENE GLYCOL 3350 119 GM BTL PO SCH ×3 (07:38→21:25)
--- NOTE | 2018-07-31 07:59 | PN ---
Teaching Attending Note Name of Resident: Sarai Lorenzo ATTENDING PHYSICIAN STATEMENT I saw and evaluated the patient. I reviewed the resident's note and discussed the case with the resident. I agree with the resident's findings and plan as documented. SUBJECTIVE: Patient is comfortable, with no acute distress. No fever or chills overnight, no acute event. OBJECTIVE: Vital Signs Temperature 98.0 F 07/31/18 06:00 Pulse Rate 73 07/31/18 06:00 Respiratory Rate 20 07/31/18 06:00 Blood Pressure 126/78 07/31/18 06:00 O2 Sat by Pulse Oximetry (%) 95 07/30/18 21:00 GENERAL: The patient is awake, alert, and fully oriented, in no acute distress.. EYES:PEERLA; EOMI; no scleral icterus NECK: no JVD; no lymphadenopathy LUNGS: coarse breath sounds B/L; no wheezes. HEART: Regular rate and rhythm, S1, S2 without murmur, rub or gallop. ABDOMEN: Soft, nontender, nondistended, normoactive bowel sounds, no guarding, no rebound, no hepatosplenomegaly, no masses. EXTREMITIES: 2+ pulses, warm, well-perfused, trace edema. Right elbow positive for drainage. PSYCH: Normal mood, normal affect. SKIN: Warm, dry, normal turgor, no rashes or lesions noted CBCD WBC 11.3 K/mm3 (4.0-10.0) H 07/31/18 05:30 RBC 4.89 M/mm3 (3.60-5.2) 07/31/18 05:30 Hgb 13.1 GM/dL (10.7-15.3) 07/31/18 05:30 Hct 40.5 % (32.4-45.2) 07/31/18 05:30 MCV 82.9 fl (80-96) 07/31/18 05:30 MCHC 32.2 g/dl (32.0-36.0) 07/31/18 05:30 RDW 16.3 % (11.6-15.6) H 07/31/18 05:30 Plt Count 283 K/MM3 (134-434) 07/31/18 05:30 MPV 7.7 fl (7.5-11.1) 07/31/18 05:30 CMP Sodium 137 mmol/L (136-145) 07/31/18 05:30 Potassium 4.7 mmol/L (3.5-5.1) 07/31/18 05:30 Chloride 97 mmol/L (98-107) L 07/31/18 05:30 Carbon Dioxide 36 mmol/L (21-32) H 07/31/18 05:30 Anion Gap 4 MMOL/L (8-16) L 07/31/18 05:30 BUN 16 mg/dL (7-18) 07/31/18 05:30 Creatinine 0.5 mg/dL (0.55-1.3) L 07/31/18 05:30 Creat Clearance w eGFR > 60 (>60) 07/31/18 05:30 Random Glucose 137 mg/dL (74-106) H 07/31/18 05:30 Calcium 8.4 mg/dL (8.5-10.1) L 07/31/18 05:30 Total Bilirubin 0.3 mg/dL (0.2-1) 07/28/18 05:30 AST 10 U/L (15-37) L 07/28/18 05:30 ALT 16 U/L (13-61) 07/28/18 05:30 Alkaline Phosphatase 111 U/L (45-117) 07/28/18 05:30 Total Protein 6.9 g/dl (6.4-8.2) 07/28/18 05:30 Albumin 2.8 g/dl (3.4-5.0) L 07/28/18 05:30 CARDIAC ENZYMES Creatine Kinase 206 U/L (26-192) H 07/27/18 15:23 Troponin I < 0.02 ng/ml (0.00-0.05) 07/27/18 15:23 Current Medications Generic Name Dose Route Start Last Admin Trade Name Freq PRN Reason Stop Dose Admin Acetaminophen 650 mg 07/27/18 19:10 Tylenol - PO Q6H PRN HEADACHE Acetylcysteine 600 mg 07/29/18 20:00 07/30/18 21:00 Mucomyst 20 Oral / Inh Use Only* NEB 600 mg RBID JOSEPH Administration Albuterol Sulfate 1 amp 07/29/18 20:00 07/30/18 21:00 Ventolin 0.083% Nebulizer Soln - NEB 1 amp RQID JOSEPH Administration Albuterol Sulfate 1 amp 07/29/18 18:17 Ventolin 0.083% Nebulizer Soln - NEB Q6H PRN SHORT OF BREATH/WHEEZING Albuterol/Ipratropium 1 amp 07/30/18 13:24 Duoneb - NEB Q4H PRN SHORTNESS OF BREATH Bacitracin 1 applic 07/29/18 22:00 07/30/18 22:02 Bacitracin - TP 1 applic BID JOSEPH Administration Clindamycin HCl 300 mg 07/28/18 06:00 07/31/18 06:14 Cleocin - PO 300 mg TID JOSEPH Administration Enoxaparin Sodium 40 mg 07/28/18 15:15 07/30/18 10:45 Lovenox - SQ 40 mg DAILY JOSEPH Administration Azithromycin 500 mg in 250 mls @ 250 mls/hr 07/30/18 15:15 07/30/18 15:32 Zithromax 500mg Ivpb (Pre-Docked) IVPB 250 mls/hr DAILY JOSEPH Administration Insulin Aspart 1 vial 07/30/18 07:00 07/31/18 06:13 Novolog Vial Sliding Scale - SQ 2 units TIDAC JOSEPH Administration Protocol Methadone HCl 40 mg/ Methadone 55 mg 07/29/18 10:00 07/31/18 06:14 HCl 15 mg PO 55 mg 0600 JOSEPH Administration Methylprednisolone Sodium Succinate 60 mg 07/30/18 15:00 07/31/18 02:32 Solu-Medrol - IVPUSH 60 mg Q6H-IV JOSEPH Administration Paroxetine HCl 20 mg 07/28/18 10:00 07/30/18 10:45 Paxil - PO 20 mg DAILY JOSEPH Administration Polyethylene Glycol 17 gm 07/29/18 10:00 07/31/18 07:38 Miralax (For Daily Use) - PO Not Given BID JOSEPH Risperidone 2 mg 07/27/18 23:45 07/30/18 22:02 Risperdal - PO 2 mg BID JOSEPH Administration Home Medications Medication Instructions Recorded Budesonide/Formeterol Fumarate 1 puff IN DAILY 07/27/18 [SYMBICORT 160/4.5mcg -] Methadone [Dolophine -] 55 mg PO DAILY 07/27/18 Paroxetine HCl [Paxil] 20 mg PO DAILY 07/27/18 Risperidone 2 mg PO BID 07/27/18 Chest CTA :Clinical information: hypoxemia; evaluate for pulmonary embolism multiplanar imaging was performed following the intravenous bolus administration of nonionic contrast. No prior CT studies are available at this facility for direct comparison. Multiple subpleural bullae are seen within the upper lung mayer bilaterally and to a lesser extent involving the superior segments of the lower lobes. Note is also made of slightly increased opacity within the posterior segment of the right upper lobe abutting the oblique fissure which may represent a very small infiltrate versus focal atelectasis. No pleural effusion is seen. An enlarged homogeneous subcarinal mediastinal lymph node is noted with a 1.7 cm short axis diameter. Several mildly enlarged bilateral hilar lymph nodes are seen. An enlarged 1.7 x 1.4 cm left axillary lymph node is noted. There is also a mildly enlarged 1.5 x 1.1 cm right axillary lymph node. The trachea and central bronchi appear unremarkable. There is no definite cardiac enlargement. No pericardial effusion is seen. No aortic aneurysm is noted. The osseous structures demonstrate no obvious acute pathology. Impression: Multiple subpleural bullae are seen bilaterally involving the upper and to a lesser extent the lower lobes probably on the basis of emphysema and less likely chronic interstitial lung disease. There is slightly increased opacity within the right upper lobe posteriorly abutting the oblique fissure which may represent a very small infiltrate versus localized atelectasis. Nonspecific mediastinal, bilateral hilar and bilateral axillary lymphadenopathy is noted. Reported By: Clint Worrell MD 07/30/182121 CT Head without contrast There is no evidence of any intracerebral hemorrhage, mass lesion or midline shift. There is no evidence of an acute subdural hematoma. No CT evidence of acute infarct. No fractures are identified. Impression: No acute bleed or mass or fracture.No CT evidence of acute infarct. PRELIMINARY REPORT PROVIDED BY RADIOLOGIST PERSONAL COACH Laboratory Tests 07/27/18 07/28/18 07/28/18 15:23 06:00 06:24 D-Dimer Methadone Screen Positive A* Benzodiazepines Screen Positive A* Influenza A (Rapid) Negative Influenza B (Rapid) Negative RSV Rapid Negative 07/30/18 14:05 D-Dimer 1003 H Methadone Screen Benzodiazepines Screen Influenza A (Rapid) Influenza B (Rapid) RSV Rapid ASSESSMENT AND PLAN: Patient is a 52yo female with PMHx of Asthma, Anxiety, and arthritis, Hx of drug use on methadone and active smoker who presented with SOB x 2 days. #Acute asthma exacerbation: improving, continue current therapy, Pulm. consult appreciated, cont steroids , cont Nebs , bipap prn. need sleep study. # Acute right elbow abcess on clindamycin continue # ACute diastolic dysfunction resolved ( report reviewed) hold off lasix # hyperkalemia ; resolved # LIZAMA;improved .CT of head neg , cont tylenol PRN # L supraclavicular lymph node. she was advised to follow with GI for EGd to r/ o any gastric malignancy #Methadone dependence : cont methadone 55 mg daily. # New onset DM. start metformin at dc DVT px : lovenox
[2018-07-31] MEDS: ALBUTEROL SO4 0.083% IH SOL 2.5 MG/3 ML VIAL.NEB. NEB SCH ×4 (08:15→20:21)
[2018-07-31] MEDS: ACETYLCYSTEINE 20% 200MG/ML 30 ML VIAL *FOR ORAL / INH USE ONLY NEB SCH ×2 (08:15→20:21)
--- NOTE | 2018-07-31 08:40 | PN ---
Physical Exam: SUBJECTIVE: Patient seen and examined at bedside- patient states her chest pain is gone however she feels her breathing is about the same; OBJECTIVE: Vital Signs Period Temp Pulse Resp BP Sys/Ortiz Pulse Ox Last 24 Hr 97.7 F-98.9 F 71-124 20-20 109-138/56-80 93-97 GENERAL: The patient is awake, alert, and fully oriented, in no acute distress. EYES: PEERLA; EOMI; no scleral icterus NECK: no JVD, no lymphadenopathy LUNGS: coarse breath sounds B/L; no wheezes HEART: Regular rate and rhythm, S1, S2 without murmur, rub or gallop. ABDOMEN: Soft, nontender, nondistended, normoactive bowel sounds, no guarding, no rebound, no hepatosplenomegaly, no masses. EXTREMITIES: 2+ pulses, warm, well-perfused, no edema. PSYCH: Normal mood, normal affect. SKIN: Warm, dry, normal turgor, no rashes or lesions noted Laboratory Results - last 24 hr 07/30/18 07/30/18 07/30/18 06:40 06:40 12:14 WBC 11.0 H RBC 4.66 Hgb 12.5 Hct 38.9 MCV 83.6 MCH 26.7 MCHC 32.0 RDW 16.2 H Plt Count 289 MPV 8.1 D-Dimer Sodium 138 Potassium 4.5 Chloride 97 L Carbon Dioxide 32 Anion Gap 9 BUN 17 Creatinine 0.5 L Creat Clearance w eGFR > 60 POC Glucometer 125 Random Glucose 135 H Calcium 8.1 L Phosphorus 4.1 Magnesium 2.3 07/30/18 07/30/18 07/30/18 14:05 17:47 22:00 WBC RBC Hgb Hct MCV MCH MCHC RDW Plt Count MPV D-Dimer 1003 H Sodium Potassium Chloride Carbon Dioxide Anion Gap BUN Creatinine Creat Clearance w eGFR POC Glucometer 229 258 Random Glucose Calcium Phosphorus Magnesium 07/31/18 07/31/18 07/31/18 05:30 05:30 05:57 WBC 11.3 H RBC 4.89 Hgb 13.1 Hct 40.5 MCV 82.9 MCH 26.7 MCHC 32.2 RDW 16.3 H Plt Count 283 MPV 7.7 D-Dimer Sodium 137 Potassium 4.7 Chloride 97 L Carbon Dioxide 36 H Anion Gap 4 L BUN 16 Creatinine 0.5 L Creat Clearance w eGFR > 60 POC Glucometer 160 Random Glucose 137 H Calcium 8.4 L Phosphorus 4.2 Magnesium 2.6 H Active Medications Generic Name Dose Route Start Last Admin Trade Name Freq PRN Reason Stop Dose Admin Acetaminophen 650 mg 07/27/18 19:10 Tylenol - PO Q6H PRN HEADACHE Acetylcysteine 600 mg 07/29/18 20:00 07/30/18 21:00 Mucomyst 20 Oral / Inh Use Only* NEB 600 mg RBID JOSEPH Administration Albuterol Sulfate 1 amp 07/29/18 20:00 07/30/18 21:00 Ventolin 0.083% Nebulizer Soln - NEB 1 amp RQID JOSEPH Administration Albuterol Sulfate 1 amp 07/29/18 18:17 Ventolin 0.083% Nebulizer Soln - NEB Q6H PRN SHORT OF BREATH/WHEEZING Albuterol/Ipratropium 1 amp 07/30/18 13:24 Duoneb - NEB Q4H PRN SHORTNESS OF BREATH Bacitracin 1 applic 07/29/18 22:00 07/30/18 22:02 Bacitracin - TP 1 applic BID JOSEPH Administration Clindamycin HCl 300 mg 07/28/18 06:00 07/31/18 06:14 Cleocin - PO 300 mg TID JOSEPH Administration Enoxaparin Sodium 40 mg 07/28/18 15:15 07/30/18 10:45 Lovenox - SQ 40 mg DAILY JOSEPH Administration Azithromycin 500 mg in 250 mls @ 250 mls/hr 07/30/18 15:15 07/30/18 15:32 Zithromax 500mg Ivpb (Pre-Docked) IVPB 250 mls/hr DAILY JOSEPH Administration Insulin Aspart 1 vial 07/30/18 07:00 07/31/18 06:13 Novolog Vial Sliding Scale - SQ 2 units TIDAC JOSEPH Administration Protocol Methadone HCl 40 mg/ Methadone 55 mg 07/29/18 10:00 07/31/18 06:14 HCl 15 mg PO 55 mg 0600 JOSEHP Administration Methylprednisolone Sodium Succinate 60 mg 07/30/18 15:00 07/31/18 02:32 Solu-Medrol - IVPUSH 60 mg Q6H-IV JOSEPH Administration Paroxetine HCl 20 mg 07/28/18 10:00 07/30/18 10:45 Paxil - PO 20 mg DAILY JOSEPH Administration Polyethylene Glycol 17 gm 07/29/18 10:00 07/31/18 07:38 Miralax (For Daily Use) - PO Not Given BID JOSEPH Risperidone 2 mg 07/27/18 23:45 07/30/18 22:02 Risperdal - PO 2 mg BID JOSEPH Administration ASSESSMENT/PLAN: 52 y/o F w/PMH of anxiety, RA, asthma, diabetes presents to the ER with SOB that started suddenly 2 days ago and has been progressively worsening. Admitted for possible new onset CHF w/acute asthma exacerbation and to r/o nephrotic syndrome-SOB secondary to possible new onset CHF vs viral URI w/superimposed asthma exacerbation. -Solumedrol 60 mg q6h -duonebs PRN -CTA done last night: showing subpleural bullae B/L in upper lung mayer; possible emphysema v. interstitial lung disease. RLL infiltrate v. atelectasis -fluid restriction -azithromycin 250 mg --tylenol for fever or pain -Peripheral edema -secondary to new onset CHF- echo showed diastolic dysfunction -resolved after 20mg lasix; will monitor if need more lasix -Severe headache -Tylenol PRN -Head CT negative -Hidradenitis Suppurativa -Axillary region -Surgery consult; no surgical intervention at this time -c/w clindamycin (day 4) for skin abscesses on elbows for 7 days -Diabetes -A1C 6.5 -ISS, BGMS ACHS -will start metformin as outpatient as patient was not on any meds -Anxiety/Depression -c/w paroxetine, risperidone -DVT ppx -Lovenox -FEN -No fluids -monitor electrolytes -Low salt diet Problem List - Problems (1) Acute hypoxemic respiratory failure Code(s): J96.01 - ACUTE RESPIRATORY FAILURE WITH HYPOXIA (2) Asthma Code(s): J45.909 - UNSPECIFIED ASTHMA, UNCOMPLICATED (3) COPD exacerbation Code(s): J44.1 - CHRONIC OBSTRUCTIVE PULMONARY DISEASE W (ACUTE) EXACERBATION (4) Diabetes Code(s): E11.9 - TYPE 2 DIABETES MELLITUS WITHOUT COMPLICATIONS Visit type - Emergency Visit Emergency Visit: Yes ED Registration Date: 07/27/18 Care time: The patient presented to the Emergency Department on the above date and was hospitalized for further evaluation of their emergent condition. - New Patient This patient is new to me today: No - Critical Care Critical Care patient: No
[2018-07-31] MEDS ORDERED: PT OWN MED DRAWER 7, Y5N ONE (09:17)
[2018-07-31] MEDS: ENOXAPARIN NA (PORCINE) 40 MG/0.4 ML DISP.SYRIN SQ SCH (09:57)
[2018-07-31] MEDS: BACITRACIN 15 GM TUBE TOPICAL OINTMENT TP SCH ×2 (09:57→21:24)
[2018-07-31] MEDS: AZITHROMYCIN IVPB 250 MG in DEXTROSE 5%-WATER - 250 ML IVPB SCH (09:58)
[2018-07-31] MEDS: PARoxetine HCL 20 MG TABLET (FP) PO SCH (09:58)
[2018-07-31] MEDS: risperiDONE 1 MG TABLET (FP) PO SCH ×2 (09:58→22:51)
--- NOTE | 2018-07-31 11:49 | PN ---
Progress Note, Physician History of Present Illness: PULMONARY ALERT,FEELING BETTER,LESS DYSPNEIC,CHEST CT -RE,CHRONIC ILD/COPD,BULLA, MEDIASTINAL ADENOPATHY - Current Medication List Current Medications: Active Medications Acetaminophen (Tylenol -) 650 mg PO Q6H PRN PRN Reason: HEADACHE Acetylcysteine (Mucomyst 20 Oral / Inh Use Only*) 600 mg NEB RBID [facility] Last Admin: 07/31/18 08:15 Dose: 600 mg Albuterol Sulfate (Ventolin 0.083% Nebulizer Soln -) 1 amp NEB RQID [facility] Last Admin: 07/31/18 11:40 Dose: 1 amp Albuterol Sulfate (Ventolin 0.083% Nebulizer Soln -) 1 amp NEB Q6H PRN PRN Reason: SHORT OF BREATH/WHEEZING Albuterol/Ipratropium (Duoneb -) 1 amp NEB Q4H PRN PRN Reason: SHORTNESS OF BREATH Bacitracin (Bacitracin -) 1 applic TP BID [facility] Last Admin: 07/31/18 09:57 Dose: 1 applic Clindamycin HCl (Cleocin -) 300 mg PO TID [facility] Last Admin: 07/31/18 06:14 Dose: 300 mg Enoxaparin Sodium (Lovenox -) 40 mg SQ DAILY [facility] Last Admin: 07/31/18 09:57 Dose: 40 mg Azithromycin 250 mg/ Dextrose 250 mls @ 250 mls/hr IVPB DAILY [facility] Last Admin: 07/31/18 09:58 Dose: 250 mls/hr Insulin Aspart (Novolog Vial Sliding Scale -) 1 vial SQ TIDAC [facility]; Protocol Last Admin: 07/31/18 11:24 Dose: 2 units Methadone HCl 40 mg/ Methadone (HCl 15 mg) 55 mg PO 0600 [facility] Last Admin: 07/31/18 06:14 Dose: 55 mg Methylprednisolone Sodium Succinate (Solu-Medrol -) 60 mg IVPUSH Q8H-IV [facility] Last Admin: 07/31/18 10:23 Dose: Not Given Paroxetine HCl (Paxil -) 20 mg PO DAILY [facility] Last Admin: 07/31/18 09:58 Dose: 20 mg Polyethylene Glycol (Miralax (For Daily Use) -) 17 gm PO BID [facility] Last Admin: 07/31/18 09:57 Dose: Not Given Risperidone (Risperdal -) 2 mg PO BID [facility] Last Admin: 07/31/18 09:58 Dose: 2 mg - Objective Vital Signs: Vital Signs Temperature 97.7 F 07/31/18 09:21 Pulse Rate 67 07/31/18 09:21 Respiratory Rate 18 07/31/18 09:21 Blood Pressure 122/72 07/31/18 09:21 O2 Sat by Pulse Oximetry (%) 97 07/31/18 08:15 Constitutional: Yes: Well Nourished, Calm Eyes: Yes: WNL HENT: Yes: WNL Cardiovascular: Yes: Regular Rate and Rhythm, S1, S2 Respiratory: Yes: Wheezes (LESS WHEEZES BILATERALLY) Gastrointestinal: Yes: Normal Bowel Sounds, Soft Extremities: Yes: WNL Edema: No Labs: CBC, BMP 07/31/18 05:30 07/31/18 05:30 INR, PTT INR 1.08 (0.83-1.09) 07/27/18 15:23 Problem List - Problems (1) Acute hypoxemic respiratory failure Code(s): J96.01 - ACUTE RESPIRATORY FAILURE WITH HYPOXIA (2) Pneumonia Code(s): J18.9 - PNEUMONIA, UNSPECIFIED ORGANISM (3) Tobacco abuse Code(s): Z72.0 - TOBACCO USE (4) Tobacco abuse counseling Code(s): Z71.6 - TOBACCO ABUSE COUNSELING (5) Diabetes Code(s): E11.9 - TYPE 2 DIABETES MELLITUS WITHOUT COMPLICATIONS (6) COPD exacerbation Code(s): J44.1 - CHRONIC OBSTRUCTIVE PULMONARY DISEASE W (ACUTE) EXACERBATION (7) Asthma Code(s): J45.909 - UNSPECIFIED ASTHMA, UNCOMPLICATED Assessment/Plan IMP ACUTE HYPOXEMIC RESPIRATORY FAILURE ASTHMA/COPD EXACERBATION ? PNEUMONIA DIASTOLIC DYSFUNCTION LIKELY OSAS DM TOBACCO ABUSE PLAN IV STEROIDS WILL START TAPER INHALED BRONCHODILATORS ABX SUPPLEMENTAL O2 SMOKING CESSATION COUNSELED SLEEP SCREEN ZIGGY CASTILLO Problem List - Problems (1) Acute hypoxemic respiratory failure Code(s): J96.01 - ACUTE RESPIRATORY FAILURE WITH HYPOXIA (2) Pneumonia Code(s): J18.9 - PNEUMONIA, UNSPECIFIED ORGANISM (3) Tobacco abuse Code(s): Z72.0 - TOBACCO USE (4) Tobacco abuse counseling Code(s): Z71.6 - TOBACCO ABUSE COUNSELING (5) Diabetes Code(s): E11.9 - TYPE 2 DIABETES MELLITUS WITHOUT COMPLICATIONS (6) COPD exacerbation Code(s): J44.1 - CHRONIC OBSTRUCTIVE PULMONARY DISEASE W (ACUTE) EXACERBATION (7) Asthma Code(s): J45.909 - UNSPECIFIED ASTHMA, UNCOMPLICATED
[2018-07-31] MEDS ORDERED: RANITIDINE HCL 150 MG TABLET (FP) PO ONE (14:31)
[2018-07-31] MEDS ORDERED: INSULIN (NOVOLOG) ASPART 100 UNITS/ML 10ML VIAL ONE ×2 (16:25→16:42)
[2018-07-31] MEDS ORDERED: MAG HYDROX/AL HYDROX/SIMETH 30 ML UNIT-DOSE CUP PO ONE (22:20)
[2018-08-01] MEDS: ACETAMINOPHEN 325 MG TABLET (FP) PO PRN ×2 (00:22→22:24)
[2018-08-01] MEDS: methylPREDNISolone NA SUCC 40 MG/1 ML VIAL IVPUSH SCH ×4 (03:16→17:49)
[2018-08-01] MEDS ORDERED: METHADONE HCL 5 MG TABLET ONE (05:23)
[2018-08-01] MEDS ORDERED: METHADONE HCL 40 MG DISPERSABLE TABLET ONE (05:24)
[2018-08-01] MEDS: METHADONE 40 MG, METHADONE 15 MG PO SCH (05:37)
[2018-08-01] MEDS: CLINDAMYCIN HCL 150 MG CAPSULE (FP) PO SCH ×2 (05:37→13:58)
[2018-08-01] MEDS: INSULIN SLIDING SCALE (NOVOLOG) 1 VIAL SQ SCH ×3 (06:12→17:06)
[2018-08-01 08:00] LABS: HEMATOCRIT 42.9 % (32.4-45.2); HEMOGLOBIN 14.1 GM/dL (10.7-15.3); MCH 26.8 pg (25.7-33.7); MCHC 32.8 g/dl (32.0-36.0); MEAN CELL VOLUME 81.7 fl (80-96); MEAN PLT VOLUME 7.7 fl (7.5-11.1); PLATELET COUNT 267 K/MM3 (134-434); RBC 5.26 M/mm3 (3.60-5.2); RDW 16.1 % (11.6-15.6)
[2018-08-01 08:23] LABS: ANION GAP 7 MMOL/L (8-16); BLOOD UREA NITROGEN 23 mg/dL (7-18); CALCIUM 8.1 mg/dL (8.5-10.1); CHLORIDE 97 mmol/L (98-107); CO2 32 mmol/L (21-32); CREATININE 0.6 mg/dL (0.55-1.3); GLUCOSE,RANDOM 117 mg/dL (74-106); MAGNESIUM 2.3 mg/dL (1.8-2.4); PHOSPHOROUS 3.2 mg/dL (2.5-4.9); SODIUM 136 mmol/L (136-145)
[2018-08-01] MEDS: ALBUTEROL SO4 0.083% IH SOL 2.5 MG/3 ML VIAL.NEB. NEB SCH ×4 (08:48→20:00)
[2018-08-01] MEDS: ACETYLCYSTEINE 20% 200MG/ML 30 ML VIAL *FOR ORAL / INH USE ONLY NEB SCH ×2 (08:48→20:00)
[2018-08-01] MEDS ORDERED: PARoxetine HCL 10 MG TABLET (FP) ONE (09:43)
[2018-08-01] MEDS ORDERED: PT OWN MED DRAWER 7, Y5N ONE (09:44)
[2018-08-01] MEDS: BACITRACIN 15 GM TUBE TOPICAL OINTMENT TP SCH ×2 (10:00→22:22)
--- NOTE | 2018-08-01 10:08 | PN ---
Progress Note (short form) - Note Progress Note: PULMONARY States breathing slightly better today. Still some cough and wheezing. Vital Signs Period Temp Pulse Resp BP Sys/Ortiz Pulse Ox Last 24 Hr 98.2 F-99.3 F 78-93 18-20 114-147/57-83 93 Gen: NAD at rest Heart: RRR Lung: scattered rhonchi, wheezes Abd: soft, nontender Ext: no edema CBC, BMP 08/01/18 07:27 08/01/18 07:27 Active Medications Acetaminophen (Tylenol -) 650 mg PO Q6H PRN PRN Reason: HEADACHE Last Admin: 08/01/18 00:22 Dose: 650 mg Acetylcysteine (Mucomyst 20 Oral / Inh Use Only*) 600 mg NEB RBID REPLACED BY [facility] Last Admin: 08/01/18 08:48 Dose: 600 mg Albuterol Sulfate (Ventolin 0.083% Nebulizer Soln -) 1 amp NEB RQID REPLACED BY [facility] Last Admin: 08/01/18 08:48 Dose: 1 amp Albuterol Sulfate (Ventolin 0.083% Nebulizer Soln -) 1 amp NEB Q6H PRN PRN Reason: SHORT OF BREATH/WHEEZING Albuterol/Ipratropium (Duoneb -) 1 amp NEB Q4H PRN PRN Reason: SHORTNESS OF BREATH Last Admin: 08/01/18 01:30 Dose: 1 amp Bacitracin (Bacitracin -) 1 applic TP BID [facility]PL[facility]ED BY [facility] Last Admin: 07/31/18 21:24 Dose: 1 applic Clindamycin HCl (Cleocin -) 300 mg PO TID [facility]PL[facility] BY [facility] Last Admin: 08/01/18 05:37 Dose: 300 mg Enoxaparin Sodium (Lovenox -) 40 mg SQ DAILY [facility]PL[facility] Last Admin: 07/31/18 09:57 Dose: 40 mg Azithromycin 250 mg/ Dextrose 250 mls @ 250 mls/hr IVPB DAILY [facility] Last Admin: 07/31/18 09:58 Dose: 250 mls/hr Insulin Aspart (Novolog Vial Sliding Scale -) 1 vial SQ TIDAC REPLACED BY [facility]; Protocol Last Admin: 08/01/18 06:12 Dose: 2 units Methadone HCl 40 mg/ Methadone (HCl 15 mg) 55 mg PO 0600 [facility]PL[facility]ED [facility] Last Admin: 08/01/18 05:37 Dose: 55 mg Methylprednisolone Sodium Succinate (Solu-Medrol -) 60 mg IVPUSH Q8H-IV REPLACED BY [facility] Last Admin: 08/01/18 03:16 Dose: 60 mg Paroxetine HCl (Paxil -) 20 mg PO DAILY [facility]PL[facility] Last Admin: 07/31/18 09:58 Dose: 20 mg Polyethylene Glycol (Miralax (For Daily Use) -) 17 gm PO BID REPLACED BY [facility] Last Admin: 07/31/18 21:25 Dose: Not Given Risperidone (Risperdal -) 2 mg PO BID REPLACED BY [facility] Last Admin: 07/31/18 22:51 Dose: 2 mg A/P Acute Hypoxic Respiratory Failure Acute COPD Exacerbation r/o Pneumonia r/o Interstitial Lung Disease LV Diastolic Dysfunction Likely JACKIE Smoker - can likely taper medrol to 40mg q8h in AM - inhaled bronchodilators - O2 to keep SpO2 >90% - complete antibiotics - smoking cessation - outpt PFTs, PSG - DVT prophylaxis
[2018-08-01] MEDS: ENOXAPARIN NA (PORCINE) 40 MG/0.4 ML DISP.SYRIN SQ SCH (10:29)
[2018-08-01] MEDS: risperiDONE 1 MG TABLET (FP) PO SCH ×2 (10:29→22:22)
[2018-08-01] MEDS: POLYETHYLENE GLYCOL 3350 119 GM BTL PO SCH ×2 (10:29→22:22)
[2018-08-01] MEDS: AZITHROMYCIN IVPB 250 MG in DEXTROSE 5%-WATER - 250 ML IVPB SCH (10:30)
[2018-08-01] MEDS: PARoxetine HCL 20 MG TABLET (FP) PO SCH (10:30)
[2018-08-01] MEDS: PANTOPRAZOLE 40 MG TABLET (FP) PO SCH (11:24)
--- NOTE | 2018-08-01 13:28 | PN ---
Physical Exam: SUBJECTIVE: Patient seen and examined at bed side , no acute events over night breathing is better , wheezing is improving , c/o cough productive , no fever, no chills, No chest pain , OBJECTIVE: Vital Signs Period Temp Pulse Resp BP Sys/Ortiz Pulse Ox Last 24 Hr 98.2 F-99.3 F 78-113 18-20 114-147/57-83 92-93 GENERAL: AAOx3 in AND , obese lady with poor hygiene HEAD: NC/AT EYES: PERRL,EOMI, sclera anicteric, conjunctiva clear ENT: MMM NECK: Trachea midline, FROM, supple. LUNGS: coarse breath sound , some expiratoy wheesing on upper lung HEART: Regular rate and rhythm, S1, S2 without murmur, rub or gallop. ABDOMEN: Soft, obese nontender, nondistended, normoactive bowel sounds, EXTREMITIES: 2+ pulses, warm, well-perfused, no edema. upper elbow with B/L abscess ,2x2 cm NEUROLOGICAL: no focal deficit PSYCH: Normal mood, normal affect. SKIN: Warm, dry, normal turgor, Laboratory Results - last 24 hr 07/31/18 07/31/18 08/01/18 16:21 23:15 05:48 WBC RBC Hgb Hct MCV MCH MCHC RDW Plt Count MPV Sodium Potassium Chloride Carbon Dioxide Anion Gap BUN Creatinine Creat Clearance w eGFR POC Glucometer 151 182 164 Random Glucose Calcium Phosphorus Magnesium 08/01/18 08/01/18 08/01/18 07:27 07:27 11:12 WBC 13.0 H RBC 5.26 H Hgb 14.1 Hct 42.9 MCV 81.7 MCH 26.8 MCHC 32.8 RDW 16.1 H Plt Count 267 MPV 7.7 Sodium 136 Potassium 4.0 Chloride 97 L Carbon Dioxide 32 Anion Gap 7 L BUN 23 H Creatinine 0.6 Creat Clearance w eGFR > 60 POC Glucometer 109 Random Glucose 117 H Calcium 8.1 L Phosphorus 3.2 Magnesium 2.3 Active Medications Generic Name Dose Route Start Last Admin Trade Name Freq PRN Reason Stop Dose Admin Acetaminophen 650 mg 07/27/18 19:10 08/01/18 00:22 Tylenol - PO 650 mg Q6H PRN Administration HEADACHE Acetylcysteine 600 mg 07/29/18 20:00 08/01/18 08:48 Mucomyst 20 Oral / Inh Use Only* NEB 600 mg RBID JOSEPH Administration Albuterol Sulfate 1 amp 07/29/18 20:00 08/01/18 11:22 Ventolin 0.083% Nebulizer Soln - NEB 1 amp RQID JOSEPH Administration Albuterol Sulfate 1 amp 07/29/18 18:17 Ventolin 0.083% Nebulizer Soln - NEB Q6H PRN SHORT OF BREATH/WHEEZING Albuterol/Ipratropium 1 amp 07/30/18 13:24 08/01/18 01:30 Duoneb - NEB 1 amp Q4H PRN Administration SHORTNESS OF BREATH Bacitracin 1 applic 07/29/18 22:00 07/31/18 21:24 Bacitracin - TP 1 applic BID JOSEPH Administration Clindamycin HCl 300 mg 07/28/18 06:00 08/01/18 05:37 Cleocin - PO 300 mg TID JOSEPH Administration Enoxaparin Sodium 40 mg 07/28/18 15:15 08/01/18 10:29 Lovenox - SQ 40 mg DAILY JOSEPH Administration Azithromycin 250 mg/ Dextrose 250 mls @ 250 mls/hr 07/31/18 10:00 08/01/18 10 :30 IVPB 250 mls/hr DAILY JOSEPH Administration Insulin Aspart 1 vial 07/30/18 07:00 08/01/18 11:20 Novolog Vial Sliding Scale - SQ Not Given [facility] Protocol Methadone HCl 40 mg/ Methadone 55 mg 07/29/18 10:00 08/01/18 05:37 HCl 15 mg PO 55 mg 0600 JOSEPH Administration Methylprednisolone Sodium Succinate 60 mg 07/31/18 10:15 08/01/18 10:29 Solu-Medrol - IVPUSH 60 mg Q8H-IV JOSEPH Administration Pantoprazole Sodium 40 mg 08/01/18 11:00 08/01/18 11:24 Protonix - PO 40 mg DAILY JOSEPH Administration Paroxetine HCl 20 mg 07/28/18 10:00 08/01/18 10:30 Paxil - PO 20 mg DAILY JOSEPH Administration Polyethylene Glycol 17 gm 07/29/18 10:00 08/01/18 10:29 Miralax (For Daily Use) - PO 17 grams BID JOSEPH Administration Risperidone 2 mg 07/27/18 23:45 08/01/18 10:29 Risperdal - PO 2 mg BID JOSEPH Administration CBC, BMP 08/01/18 07:27 08/01/18 07:27 ASSESSMENT/PLAN: 52 y/o F w/PMH of anxiety, RA, asthma, diabetes presents to the ER with SOB worsening last couple days , admitted for acute hypoxic respiratory failure. #Acute Hypoxic Respiratory Failure. # Acute asthma exacerbation #Acute COPD Exacerbation #r/o Pneumonia #r/o Interstitial Lung Disease * cont Solumedrol 60 mg q8h * duonebs PRN * Azithromax day 3 * CTA chest : showing subpleural bullae B/L in upper lung mayer; possible emphysema v. interstitial lung disease. RLL infiltrate v. atelectasis * fluid restriction * pulmonary consulted Dr Vicente: recommend O2 to keep o2 sat 88-92% , PFTS out pt * O2 to keep SpO2 >90% #Left Ventricular diastolic dysfunction * echo reviewed * improved after 20mg lasix; * intake and out put , daily weight * Lasix prn #Severe headache * Tylenol PRN * Head CT negative #Hidradenitis Suppurativa, B/L elbow abscess * Axillary region,Surgery consulted Dr Guillory ; for I& D , NPO after med night * c/w clindamycin (day 5) for skin abscesses on elbows for 7 days #new diagnose DM * A1C 6.5 * ISS, BGMS ACHS * metformin upon DC # Methadone dependant : cont home dose , dose was verified by Dr Lorenzo # constiation : miralax BID #Anxiety/Depression * c/w paroxetine, risperidone # Smoking ,educated about smoking cessation * nicotine patch # DVT ppx * Lovenox 40 SQ daily # FEN * No standing fluids * monitor electrolytes * Low NA diet, NPO after med night # Dispo: Med surg , transferred from Tele Visit type - Emergency Visit Emergency Visit: Yes ED Registration Date: 07/27/18 Care time: The patient presented to the Emergency Department on the above date and was hospitalized for further evaluation of their emergent condition. - New Patient This patient is new to me today: No - Critical Care Critical Care patient: No
--- NOTE | 2018-08-01 13:40 | PN ---
Progress Note (short form) - Note Progress Note: Called to re-consult for b/l elbows with drainaing wounds. Pt reports no improvement despite trtmt with abx, denies pain. On exam, b/l olecronon with approx 3x3cm ?cyst on right and approx 2x2cm ?cyst, scant seropurulent drainage expressed b/l, no erythema, minimal ttp. ROM wnl. Pt added on to OR schedule tomorrow for I&D b/l olecronon ?infected cysts NPO after midnight Labs in AM Continue abx and local wound care above d/w attending Dr Guillory
--- NOTE | 2018-08-01 15:42 | PN ---
Progress Note (short form) - Note Progress Note: ID consult dictated imp/reccd 52 yo female on methadone- followed in [place]- doesn't know who her PCP is history of elbow abscesses for at least one year- has had them drained at multiple hospitals- [place] and [facility] admitted on 07/27 for SOB and LIZAMA noted to have leg swelling, and bilateral pus draining nodular lesions on her elbows reports fever at home notes abdominal pain last night multiple BMs today (on miralax BID) has been on clindamycin since admission still with purulent drainage from right elbow nodule blood cultures vancomycin wound cultures pending for incision and drainage in am consider d/c miralax as patient now has diarrhea reports she is hiv negative declines repeat testing
--- NOTE | 2018-08-01 15:56 | PN ---
Teaching Attending Note Name of Resident: Shayne Sheehan ATTENDING PHYSICIAN STATEMENT I saw and evaluated the patient. I reviewed the resident's note and discussed the case with the resident. I agree with the resident's findings and plan as documented. SUBJECTIVE: Patient is doing better , shortness of breath on exertion, saturation drops to 86% on exertion. OBJECTIVE: Vital Signs Temperature 98.3 F 08/01/18 14:14 Pulse Rate 76 08/01/18 14:14 Respiratory Rate 20 08/01/18 14:14 Blood Pressure 102/50 L 08/01/18 14:14 O2 Sat by Pulse Oximetry (%) 92 L 08/01/18 11:16 GENERAL: The patient is awake, alert, and fully oriented, in no acute distress.. EYES:PEERLA; EOMI; no scleral icterus NECK: no JVD; no lymphadenopathy LUNGS: coarse breath sounds B/L; no wheezes. HEART: Regular rate and rhythm, S1, S2 without murmur, rub or gallop. ABDOMEN: Soft, nontender, nondistended, normoactive bowel sounds, no guarding, no rebound, no hepatosplenomegaly, no masses. EXTREMITIES: 2+ pulses, warm, well-perfused, trace edema. . PSYCH: Normal mood, normal affect. SKIN: Warm, dry, normal turgor, no rashes or lesions noted CBCD WBC 13.0 K/mm3 (4.0-10.0) H 08/01/18 07:27 RBC 5.26 M/mm3 (3.60-5.2) H 08/01/18 07:27 Hgb 14.1 GM/dL (10.7-15.3) 08/01/18 07:27 Hct 42.9 % (32.4-45.2) 08/01/18 07:27 MCV 81.7 fl (80-96) 08/01/18 07:27 MCHC 32.8 g/dl (32.0-36.0) 08/01/18 07:27 RDW 16.1 % (11.6-15.6) H 08/01/18 07:27 Plt Count 267 K/MM3 (134-434) 08/01/18 07:27 MPV 7.7 fl (7.5-11.1) 08/01/18 07:27 CMP Sodium 136 mmol/L (136-145) 08/01/18 07:27 Potassium 4.0 mmol/L (3.5-5.1) 08/01/18 07:27 Chloride 97 mmol/L (98-107) L 08/01/18 07:27 Carbon Dioxide 32 mmol/L (21-32) 08/01/18 07:27 Anion Gap 7 MMOL/L (8-16) L 08/01/18 07:27 BUN 23 mg/dL (7-18) H 08/01/18 07:27 Creatinine 0.6 mg/dL (0.55-1.3) 08/01/18 07:27 Creat Clearance w eGFR > 60 (>60) 08/01/18 07:27 Random Glucose 117 mg/dL (74-106) H 08/01/18 07:27 Calcium 8.1 mg/dL (8.5-10.1) L 08/01/18 07:27 Total Bilirubin 0.3 mg/dL (0.2-1) 07/28/18 05:30 AST 10 U/L (15-37) L 07/28/18 05:30 ALT 16 U/L (13-61) 07/28/18 05:30 Alkaline Phosphatase 111 U/L (45-117) 07/28/18 05:30 Total Protein 6.9 g/dl (6.4-8.2) 07/28/18 05:30 Albumin 2.8 g/dl (3.4-5.0) L 07/28/18 05:30 CARDIAC ENZYMES Creatine Kinase 206 U/L (26-192) H 07/27/18 15:23 Troponin I < 0.02 ng/ml (0.00-0.05) 07/27/18 15:23 Current Medications Generic Name Dose Route Start Last Admin Trade Name Freq PRN Reason Stop Dose Admin Acetaminophen 650 mg 07/27/18 19:10 08/01/18 00:22 Tylenol - PO 650 mg Q6H PRN Administration HEADACHE Acetylcysteine 600 mg 07/29/18 20:00 08/01/18 08:48 Mucomyst 20 Oral / Inh Use Only* NEB 600 mg RBID JOSEPH Administration Albuterol Sulfate 1 amp 07/29/18 20:00 08/01/18 11:22 Ventolin 0.083% Nebulizer Soln - NEB 1 amp RQID JOSEPH Administration Albuterol Sulfate 1 amp 07/29/18 18:17 Ventolin 0.083% Nebulizer Soln - NEB Q6H PRN SHORT OF BREATH/WHEEZING Albuterol/Ipratropium 1 amp 07/30/18 13:24 08/01/18 01:30 Duoneb - NEB 1 amp Q4H PRN Administration SHORTNESS OF BREATH Bacitracin 1 applic 07/29/18 22:00 07/31/18 21:24 Bacitracin - TP 1 applic BID JOSEPH Administration Enoxaparin Sodium 40 mg 07/28/18 15:15 08/01/18 10:29 Lovenox - SQ 40 mg DAILY JOSEPH Administration Azithromycin 250 mg/ Dextrose 250 mls @ 250 mls/hr 07/31/18 10:00 08/01/18 10 :30 IVPB 250 mls/hr DAILY JOSEPH Administration Insulin Aspart 1 vial 07/30/18 07:00 08/01/18 11:20 Novolog Vial Sliding Scale - SQ Not Given TIDAC [facility] Protocol Methadone HCl 40 mg/ Methadone 55 mg 07/29/18 10:00 08/01/18 05:37 HCl 15 mg PO 55 mg 0600 JOSEPH Administration Methylprednisolone Sodium Succinate 40 mg 07/31/18 10:15 08/01/18 10:29 Solu-Medrol - IVPUSH 60 mg Q8H-IV JOSEPH Administration changed to 40mg Pantoprazole Sodium 40 mg 08/01/18 11:00 08/01/18 11:24 Protonix - PO 40 mg DAILY JOSEPH Administration Paroxetine HCl 20 mg 07/28/18 10:00 08/01/18 10:30 Paxil - PO 20 mg DAILY JOSEPH Administration Polyethylene Glycol 17 gm 07/29/18 10:00 08/01/18 10:29 Miralax (For Daily Use) - PO 17 grams BID JOSEPH Administration Risperidone 2 mg 07/27/18 23:45 08/01/18 10:29 Risperdal - PO 2 mg BID JOSEPH Administration Home Medications Medication Instructions Recorded Budesonide/Formeterol Fumarate 1 puff IN DAILY 07/27/18 [SYMBICORT 160/4.5mcg -] Methadone [Dolophine -] 55 mg PO DAILY 07/27/18 Paroxetine HCl [Paxil] 20 mg PO DAILY 07/27/18 Risperidone 2 mg PO BID 07/27/18 Laboratory Tests 07/27/18 07/28/18 07/28/18 15:23 06:00 06:24 D-Dimer Methadone Screen Positive A* Benzodiazepines Screen Positive A* Influenza A (Rapid) Negative Influenza B (Rapid) Negative RSV Rapid Negative 07/30/18 14:05 D-Dimer 1003 H Methadone Screen Benzodiazepines Screen Influenza A (Rapid) Influenza B (Rapid) RSV Rapid ELbow abcess draining to OR in am if stable, ID consulted , sx consulted. 52 y/ o lady with h/o Asthma, Anxiety, and arthritis ( no specific diagnosis ) ,h/o drug use , on methadone and active smoker who presented with SOB x 2 days. Chest CTA :Clinical information: hypoxemia; evaluate for pulmonary embolism multiplanar imaging was performed following the intravenous bolus administration of nonionic contrast. No prior CT studies are available at this facility for direct comparison. Multiple subpleural bullae are seen within the upper lung mayer bilaterally and to a lesser extent involving the superior segments of the lower lobes. Note is also made of slightly increased opacity within the posterior segment of the right upper lobe abutting the oblique fissure which may represent a very small infiltrate versus focal atelectasis. No pleural effusion is seen. An enlarged homogeneous subcarinal mediastinal lymph node is noted with a 1.7 cm short axis diameter. Several mildly enlarged bilateral hilar lymph nodes are seen. An enlarged 1.7 x 1.4 cm left axillary lymph node is noted. There is also a mildly enlarged 1.5 x 1.1 cm right axillary lymph node. The trachea and central bronchi appear unremarkable. There is no definite cardiac enlargement. No pericardial effusion is seen. No aortic aneurysm is noted. The osseous structures demonstrate no obvious acute pathology. Impression: Multiple subpleural bullae are seen bilaterally involving the upper and to a lesser extent the lower lobes probably on the basis of emphysema and less likely chronic interstitial lung disease. There is slightly increased opacity within the right upper lobe posteriorly abutting the oblique fissure which may represent a very small infiltrate versus localized atelectasis. Nonspecific mediastinal, bilateral hilar and bilateral axillary lymphadenopathy is noted. Reported By: Clint Worrell MD 07/30/[address] Head without contrast There is no evidence of any intracerebral hemorrhage, mass lesion or midline shift. There is no evidence of an acute subdural hematoma. No CT evidence of acute infarct. No fractures are identified. Impression: No acute bleed or mass or fracture.No CT evidence of acute infarct. PRELIMINARY REPORT PROVIDED BY RADIOLOGIST TEST TECHNICIAN ASSESSMENT AND PLAN: Patient is a 52yo female with PMHx of Asthma, Anxiety, and arthritis, Hx of drug use on methadone and active smoker who presented with SOB x 2 days. #Acute asthma exacerbation: improving, continue current therapy, Pulm. consult appreciated, cont steroids , cont Nebs , bipap prn. need sleep study. # Acute right elbow abscess on clindamycin , ID on the case, wound culture , blood culture ordered. # Acute diastolic dysfunction resolved ( report reviewed) hold off lasix # hyperkalemia ; resolved # LIZAMA: improved, CT of head neg. cont tylenol PRN # Left supraclavicular lymph node. she was advised to follow with GI for EGd to r/o any gastric malignancy #Methadone dependence : cont methadone 55 mg daily. # New onset DM. start metformin at dc DVT px : lovenox
[2018-08-01] MEDS ORDERED: INSULIN (NOVOLOG) ASPART 100 UNITS/ML 10ML VIAL ONE (17:01)
[2018-08-01] MEDS: VANCOMYCIN HCL 1,500 MG in DEXTROSE 5%-WATER - 500 ML IVPB SCH (17:49)
[2018-08-02] MEDS: methylPREDNISolone NA SUCC 40 MG/1 ML VIAL IVPUSH SCH ×3 (02:21→17:05)
[2018-08-02] MEDS: VANCOMYCIN HCL 1,500 MG in DEXTROSE 5%-WATER - 500 ML IVPB SCH (05:00)
[2018-08-02] MEDS ORDERED: METHADONE HCL 40 MG DISPERSABLE TABLET ONE (06:15)
[2018-08-02] MEDS ORDERED: METHADONE HCL 5 MG TABLET ONE (06:15)
[2018-08-02] MEDS: METHADONE 40 MG, METHADONE 15 MG PO SCH (06:21)
[2018-08-02] MEDS: INSULIN SLIDING SCALE (NOVOLOG) 1 VIAL SQ SCH ×3 (06:23→16:21)
[2018-08-02] MEDS: ALBUTEROL SO4 0.083% IH SOL 2.5 MG/3 ML VIAL.NEB. NEB SCH ×4 (07:35→20:19)
[2018-08-02] MEDS: ACETYLCYSTEINE 20% 200MG/ML 30 ML VIAL *FOR ORAL / INH USE ONLY NEB SCH ×2 (07:35→20:19)
[2018-08-02 08:07] LABS: HEMATOCRIT 44.5 % (32.4-45.2); HEMOGLOBIN 14.3 GM/dL (10.7-15.3); LYMPH % 8.2 % (8-40); MCH 26.6 pg (25.7-33.7); MEAN CELL VOLUME 82.9 fl (80-96); MEAN PLT VOLUME 7.8 fl (7.5-11.1); MONO % 5.4 % (3.8-10.2); NEUT % 86.4 % (42.8-82.8); PLATELET COUNT 241 K/MM3 (134-434); RBC 5.37 M/mm3 (3.60-5.2); RDW 16.3 % (11.6-15.6); WHITE BLOOD COUNT 8.9 K/mm3 (4.0-10.0)
[2018-08-02] MEDS ORDERED: PARoxetine HCL 10 MG TABLET (FP) ONE (08:22)
[2018-08-02 08:28] LABS: INR 1.13 (0.83-1.09); PROTHROMBIN TIME (PATIENT) 13.4 SEC (9.7-13.0)
[2018-08-02 08:30] LABS: ACTIVATED PTT 28.7 SECONDS (25.2-36.5)
[2018-08-02 08:49] LABS: ANION GAP 5 MMOL/L (8-16); BLOOD UREA NITROGEN 19 mg/dL (7-18); CALCIUM 7.9 mg/dL (8.5-10.1); CHLORIDE 94 mmol/L (98-107); CO2 35 mmol/L (21-32); CREATININE 0.6 mg/dL (0.55-1.3); GLUCOSE,RANDOM 190 mg/dL (74-106); MAGNESIUM 2.5 mg/dL (1.8-2.4); POTASSIUM 4.3 mmol/L (3.5-5.1); SODIUM 135 mmol/L (136-145)
[2018-08-02] MEDS: AZITHROMYCIN IVPB 250 MG in DEXTROSE 5%-WATER - 250 ML IVPB SCH (09:44)
[2018-08-02] MEDS: BACITRACIN 15 GM TUBE TOPICAL OINTMENT TP SCH ×3 (09:44→21:38)
--- NOTE | 2018-08-02 13:25 | PN ---
Progress Note (short form) - Note Progress Note: Attending Surgeon Seen in f/u; no indication for surgical intervention at this time; she may f/u as an outpatient. Eliceo Guillory MD FACS
--- NOTE | 2018-08-02 13:58 | PN ---
Progress Note (short form) - Note Progress Note: PULMONARY Still some cough and wheezing. Anicteric RSR Bilateral exp wheeze Abd: soft, nontender Ext: no edema Active Medications reviewed A/P Acute Hypoxic Respiratory Failure Acute COPD Exacerbation r/o Pneumonia r/o Interstitial Lung Disease LV Diastolic Dysfunction Likely JACKIE Smoker - taper medrol - inhaled bronchodilators - O2 to keep SpO2 >90% - complete antibiotics - smoking cessation - outpt PFTs, PSG - DVT prophylaxis Charisma RODRIGUEZ MD
[2018-08-02] MEDS: ENOXAPARIN NA (PORCINE) 40 MG/0.4 ML DISP.SYRIN SQ SCH (14:33)
[2018-08-02] MEDS: PANTOPRAZOLE 40 MG TABLET (FP) PO SCH (14:34)
[2018-08-02] MEDS: PARoxetine HCL 20 MG TABLET (FP) PO SCH (14:34)
[2018-08-02] MEDS: risperiDONE 1 MG TABLET (FP) PO SCH ×2 (14:34→21:33)
--- NOTE | 2018-08-02 14:56 | PN ---
Physical Exam: SUBJECTIVE: Patient seen and examined at bedside- no acute events overnight; patient states her breathing is improved and she is saturating well on nasal canula- was supposed to be going for i and d this AM for drainage of elbow abscess however surgeyr did not feel comfortable putting her under anesthesia OBJECTIVE: Vital Signs Period Temp Pulse Resp BP Sys/Ortiz Pulse Ox Last 24 Hr 98.2 F-100.2 F 63-94 20-20 127-148/58-81 94-95 GENERAL: The patient is awake, alert, and fully oriented, in no acute distress. EYES: PERRLA, EOMI; no scleral icterus NECK: no JVD; no lymphadenopathy LUNGS: CTA B/L; no rales rhonchi or wheezing HEART: Regular rate and rhythm, S1, S2 without murmur, rub or gallop. ABDOMEN: Soft, nontender, nondistended, normoactive bowel sounds, no guarding, no rebound, no hepatosplenomegaly, no masses. EXTREMITIES: 2+ pulses, warm, well-perfused, trace edema. PSYCH: Normal mood, normal affect. SKIN: Warm, dry, normal turgor, no rashes or lesions noted Laboratory Results - last 24 hr 08/01/18 08/01/18 08/02/18 16:53 23:09 06:23 WBC RBC Hgb Hct MCV MCH MCHC RDW Plt Count MPV Absolute Neuts (auto) Neutrophils % Lymphocytes % Monocytes % Eosinophils % Basophils % Nucleated RBC % ESR PT with INR INR PTT (Actin FS) Sodium Potassium Chloride Carbon Dioxide Anion Gap BUN Creatinine Creat Clearance w eGFR POC Glucometer 168 124 219 Random Glucose Calcium Phosphorus Magnesium 08/02/18 08/02/18 08/02/18 07:16 07:16 07:16 WBC 8.9 RBC 5.37 H Hgb 14.3 Hct 44.5 MCV 82.9 MCH 26.6 MCHC 32.0 RDW 16.3 H Plt Count 241 MPV 7.8 Absolute Neuts (auto) 7.7 Neutrophils % 86.4 H Lymphocytes % 8.2 Monocytes % 5.4 D Eosinophils % 0.0 Basophils % 0.0 Nucleated RBC % 0 ESR PT with INR 13.40 H INR 1.13 H PTT (Actin FS) 28.7 Sodium 135 L Potassium 4.3 Chloride 94 L Carbon Dioxide 35 H Anion Gap 5 L BUN 19 H Creatinine 0.6 Creat Clearance w eGFR > 60 POC Glucometer Random Glucose 190 H Calcium 7.9 L Phosphorus 4.0 Magnesium 2.5 H 08/02/18 08/02/18 07:16 11:26 WBC RBC Hgb Hct MCV MCH MCHC RDW Plt Count MPV Absolute Neuts (auto) Neutrophils % Lymphocytes % Monocytes % Eosinophils % Basophils % Nucleated RBC % ESR 12 PT with INR INR PTT (Actin FS) Sodium Potassium Chloride Carbon Dioxide Anion Gap BUN Creatinine Creat Clearance w eGFR POC Glucometer 118 Random Glucose Calcium Phosphorus Magnesium Active Medications Generic Name Dose Route Start Last Admin Trade Name Freq PRN Reason Stop Dose Admin Acetaminophen 650 mg 07/27/18 19:10 08/01/18 22:24 Tylenol - PO 650 mg Q6H PRN Administration HEADACHE Acetylcysteine 600 mg 07/29/18 20:00 08/02/18 07:35 Mucomyst 20 Oral / Inh Use Only* NEB 600 mg RBID JOSEPH Administration Albuterol Sulfate 1 amp 07/29/18 20:00 08/02/18 11:16 Ventolin 0.083% Nebulizer Soln - NEB Not Given RQID JOSEPH Albuterol Sulfate 1 amp 07/29/18 18:17 Ventolin 0.083% Nebulizer Soln - NEB Q6H PRN SHORT OF BREATH/WHEEZING Albuterol/Ipratropium 1 amp 07/30/18 13:24 08/01/18 01:30 Duoneb - NEB 1 amp Q4H PRN Administration SHORTNESS OF BREATH Bacitracin 1 applic 07/29/18 22:00 08/02/18 11:28 Bacitracin - TP 1 applic BID JOSEPH Administration Enoxaparin Sodium 40 mg 07/28/18 15:15 08/02/18 14:33 Lovenox - SQ 40 mg DAILY JOSEPH Administration Azithromycin 250 mg/ Dextrose 250 mls @ 250 mls/hr 07/31/18 10:00 08/02/18 09 :44 IVPB 250 mls/hr DAILY JOSEPH Administration Vancomycin HCl 1,500 mg/ 500 mls @ 250 mls/hr 08/01/18 16:45 08/02/18 05:00 Dextrose IVPB 250 mls/hr Q12H JOSEPH Administration Protocol Insulin Aspart 1 vial 07/30/18 07:00 08/02/18 11:29 Novolog Vial Sliding Scale - SQ Not Given TIDAC JOSEPH Protocol Methadone HCl 40 mg/ Methadone 55 mg 07/29/18 10:00 08/02/18 06:21 HCl 15 mg PO 55 mg 0600 JOSEPH Administration Methylprednisolone Sodium Succinate 40 mg 08/01/18 16:00 08/02/18 09:43 Solu-Medrol - IVPUSH 40 mg Q8H-IV JOSEPH Administration Pantoprazole Sodium 40 mg 08/01/18 11:00 08/02/18 14:34 Protonix - PO 40 mg DAILY JOSEPH Administration Paroxetine HCl 20 mg 07/28/18 10:00 08/02/18 14:34 Paxil - PO 20 mg DAILY JOSEPH Administration Risperidone 2 mg 07/27/18 23:45 08/02/18 14:34 Risperdal - PO 2 mg BID JOSEPH Administration ASSESSMENT/PLAN: 52 y/o F w/PMH of anxiety, RA, asthma, diabetes presents to the ER with SOB worsening last couple days , admitted for acute hypoxic respiratory failure. #Acute Hypoxic Respiratory Failure. * cont Solumedrol 40 mg q8h * duonebs PRN * Azithromax day 4 * CTA chest : showing subpleural bullae B/L in upper lung mayer; possible emphysema v. interstitial lung disease. RLL infiltrate v. atelectasis * fluid restriction * pulmonary consulted Dr Vicente: recommend O2 to keep o2 sat 88-92% , PFTS out pt * O2 to keep SpO2 >90% #Left Ventricular diastolic dysfunction * echo reviewed * improved after 20mg lasix; * intake and out put , daily weight * Lasix prn #Severe headache * Tylenol PRN * Head CT negative #Hidradenitis Suppurativa, B/L elbow abscess * Axillary region,Surgery consulted Dr Guillory ; patient could not get I and D today as surgeon didnt feel comfortable with anesthesia * on vancomycin 1.5 BID day 2 #new diagnose DM * A1C 6.5 * ISS, BGMS ACHS * metformin upon DC # Methadone dependant : cont home dose , dose was verified by Dr Lorenzo # constiation : miralax BID #Anxiety/Depression * c/w paroxetine, risperidone # Smoking ,educated about smoking cessation * nicotine patch # DVT ppx * Lovenox 40 SQ daily # FEN * No standing fluids * monitor electrolytes * Low NA diet, NPO after med night Problem List - Problems (1) Acute hypoxemic respiratory failure Code(s): J96.01 - ACUTE RESPIRATORY FAILURE WITH HYPOXIA (2) Asthma Code(s): J45.909 - UNSPECIFIED ASTHMA, UNCOMPLICATED (3) COPD exacerbation Code(s): J44.1 - CHRONIC OBSTRUCTIVE PULMONARY DISEASE W (ACUTE) EXACERBATION (4) Diabetes Code(s): E11.9 - TYPE 2 DIABETES MELLITUS WITHOUT COMPLICATIONS Visit type - Emergency Visit Emergency Visit: Yes ED Registration Date: 07/27/18 Care time: The patient presented to the Emergency Department on the above date and was hospitalized for further evaluation of their emergent condition. - New Patient This patient is new to me today: No - Critical Care Critical Care patient: No
--- NOTE | 2018-08-02 15:38 | PN ---
Progress Note (short form) - Note Progress Note: much improved today no abdominal pain no drainage from the elbow- she didnot go to OR today Vital Signs Period Temp Pulse Resp BP Sys/Ortiz Pulse Ox Last 24 Hr 98.2 F-100.2 F 63-94 20-20 127-148/58-81 94-95 cor-rrr lungs decreased bs at bases abd soft,nt ext trace edema CBC, BMP 08/02/18 07:16 08/02/18 07:16 Microbiology 08/01/18 11:50 Elbow - Right Gram Stain - Final 08/01/18 11:50 Elbow - Right Wound Culture - Preliminary NO GROWTH OBTAINED AFTER 24 HOURS INCUBATION, REINCUBATED. 08/01/18 11:50 Elbow - Left Gram Stain - Final 08/01/18 11:50 Elbow - Left Wound Culture - Preliminary NO GROWTH OBTAINED AFTER 24 HOURS INCUBATION, REINCUBATED. 07/28/18 06:30 Nasopharyngeal Swab Respiratory Virus (PCR) - Final 07/29/18 16:15 Nares - Mrsa Screen - Right MRSA Screen - Final NO MRSA ISOLATED a/p elbow abscesses blood cultures pending vancomycin dose decreased wound cultures pending if wound culture is negative can switch to po keflex in am 500 tid for another week breathing and edema impoved as well abdominal pain resolved reports she is hiv negative declines repeat testing
[2018-08-02] MEDS: VANCOMYCIN 1 GRAM (PRE-DOCKED) 1,000 MG/250 ML BAG IVPB SCH (16:19)
[2018-08-02] MEDS ORDERED: ACETAMINOPHEN 325 MG TABLET (FP) PO PRN (20:14)
[2018-08-02] MEDS ORDERED: ALBUTEROL SO4 0.083% IH SOL 2.5 MG/3 ML VIAL.NEB. NEB PRN (20:14)
[2018-08-02] MEDS: POLYETHYLENE GLYCOL 3350 119 GM BTL PO SCH (20:18)
[2018-08-02] MEDS ORDERED: PT OWN MED DRAWER 7, Y5N ONE (20:55)
--- NOTE | 2018-08-02 21:23 | PN ---
Teaching Attending Note Name of Resident: Sarai Lorenzo ATTENDING PHYSICIAN STATEMENT I saw and evaluated the patient. I reviewed the resident's note and discussed the case with the resident. I agree with the resident's findings and plan as documented. SUBJECTIVE: Patient is feeling better with no acute distress. OBJECTIVE: Vital Signs Temperature 98.6 F 08/02/18 18:44 Pulse Rate 76 08/02/18 18:44 Respiratory Rate 20 08/02/18 18:44 Blood Pressure 133/61 08/02/18 18:44 O2 Sat by Pulse Oximetry (%) 94 L 08/02/18 09:00 GENERAL: The patient is awake, alert, and fully oriented, in no acute distress.. EYES:PEERLA; EOMI; no scleral icterus NECK: no JVD; no lymphadenopathy LUNGS: coarse breath sounds B/L; no wheezes. HEART: Regular rate and rhythm, S1, S2 without murmur, rub or gallop. ABDOMEN: Soft, nontender, nondistended, normoactive bowel sounds, no guarding, no rebound, no hepatosplenomegaly, no masses. EXTREMITIES: 2+ pulses, warm, well-perfused, trace edema. positive for draining abscess, right elbow. PSYCH: Normal mood, normal affect. SKIN: Warm, dry, normal turgor, no rashes or lesions noted CBCD WBC 8.9 K/mm3 (4.0-10.0) 08/02/18 07:16 RBC 5.37 M/mm3 (3.60-5.2) H 08/02/18 07:16 Hgb 14.3 GM/dL (10.7-15.3) 08/02/18 07:16 Hct 44.5 % (32.4-45.2) 08/02/18 07:16 MCV 82.9 fl (80-96) 08/02/18 07:16 MCHC 32.0 g/dl (32.0-36.0) 08/02/18 07:16 RDW 16.3 % (11.6-15.6) H 08/02/18 07:16 Plt Count 241 K/MM3 (134-434) 08/02/18 07:16 MPV 7.8 fl (7.5-11.1) 08/02/18 07:16 CMP Sodium 135 mmol/L (136-145) L 08/02/18 07:16 Potassium 4.3 mmol/L (3.5-5.1) 08/02/18 07:16 Chloride 94 mmol/L (98-107) L 08/02/18 07:16 Carbon Dioxide 35 mmol/L (21-32) H 08/02/18 07:16 Anion Gap 5 MMOL/L (8-16) L 08/02/18 07:16 BUN 19 mg/dL (7-18) H 08/02/18 07:16 Creatinine 0.6 mg/dL (0.55-1.3) 08/02/18 07:16 Creat Clearance w eGFR > 60 (>60) 08/02/18 07:16 Random Glucose 190 mg/dL (74-106) H 08/02/18 07:16 Calcium 7.9 mg/dL (8.5-10.1) L 08/02/18 07:16 Total Bilirubin 0.3 mg/dL (0.2-1) 07/28/18 05:30 AST 10 U/L (15-37) L 07/28/18 05:30 ALT 16 U/L (13-61) 07/28/18 05:30 Alkaline Phosphatase 111 U/L (45-117) 07/28/18 05:30 Total Protein 6.9 g/dl (6.4-8.2) 07/28/18 05:30 Albumin 2.8 g/dl (3.4-5.0) L 07/28/18 05:30 CARDIAC ENZYMES Creatine Kinase 206 U/L (26-192) H 07/27/18 15:23 Troponin I < 0.02 ng/ml (0.00-0.05) 07/27/18 15:23 Current Medications Generic Name Dose Route Start Last Admin Trade Name Freq PRN Reason Stop Dose Admin Acetaminophen 650 mg 08/02/18 20:14 Tylenol - PO Q6H PRN HEADACHE Acetylcysteine 600 mg 08/03/18 08:00 Mucomyst 20 Oral / Inh Use Only* NEB RBID JOSEPH Albuterol Sulfate 1 amp 08/02/18 20:14 Ventolin 0.083% Nebulizer Soln - NEB Q6H PRN SHORT OF BREATH/WHEEZING Albuterol Sulfate 1 amp 08/03/18 08:00 Ventolin 0.083% Nebulizer Soln - NEB RQID JOSEPH Albuterol/Ipratropium 1 amp 07/30/18 13:24 08/01/18 01:30 Duoneb - NEB 1 amp Q4H PRN Administration SHORTNESS OF BREATH Bacitracin 1 applic 08/02/18 22:00 Bacitracin - TP BID JOSEPH Enoxaparin Sodium 40 mg 08/03/18 10:00 Lovenox - SQ DAILY [facility] Azithromycin 250 mg/ Dextrose 250 mls @ 250 mls/hr 07/31/18 10:00 08/02/18 09 :44 IVPB 250 mls/hr DAILY JOSEPH Administration Vancomycin HCl 1,000 mg in 250 mls @ 166.667 mls/hr 08/02/18 17:00 08/02/18 16:19 Vancomycin (Pre-Docked) IVPB 166.667 mls/hr BID@0500,1700 JOSEPH Administration Protocol Insulin Aspart 1 vial 08/03/18 07:00 Novolog Vial Sliding Scale - SQ TIDAC [facility] Protocol Methadone HCl 40 mg/ Methadone 55 mg 08/03/18 06:00 HCl 15 mg PO 0600 [facility] Methylprednisolone Sodium Succinate 40 mg 08/01/18 16:00 08/02/18 17:05 Solu-Medrol - IVPUSH 40 mg Q8H-IV JOSEPH Administration Pantoprazole Sodium 40 mg 08/01/18 11:00 08/02/18 14:34 Protonix - PO 40 mg DAILY JOSEPH Administration Paroxetine HCl 20 mg 08/03/18 10:00 Paxil - PO DAILY [facility] Risperidone 2 mg 08/02/18 22:00 Risperdal - PO BID [facility] Home Medications Medication Instructions Recorded Budesonide/Formeterol Fumarate 1 puff IN DAILY 07/27/18 [SYMBICORT 160/4.5mcg -] Methadone [Dolophine -] 55 mg PO DAILY 07/27/18 Paroxetine HCl [Paxil] 20 mg PO DAILY 07/27/18 Risperidone 2 mg PO BID 07/27/18 Chest CTA :Clinical information: hypoxemia; evaluate for pulmonary embolism multiplanar imaging was performed following the intravenous bolus administration of nonionic contrast. No prior CT studies are available at this facility for direct comparison. Multiple subpleural bullae are seen within the upper lung mayer bilaterally and to a lesser extent involving the superior segments of the lower lobes. Note is also made of slightly increased opacity within the posterior segment of the right upper lobe abutting the oblique fissure which may represent a very small infiltrate versus focal atelectasis. No pleural effusion is seen. An enlarged homogeneous subcarinal mediastinal lymph node is noted with a 1.7 cm short axis diameter. Several mildly enlarged bilateral hilar lymph nodes are seen. An enlarged 1.7 x 1.4 cm left axillary lymph node is noted. There is also a mildly enlarged 1.5 x 1.1 cm right axillary lymph node. The trachea and central bronchi appear unremarkable. There is no definite cardiac enlargement. No pericardial effusion is seen. No aortic aneurysm is noted. The osseous structures demonstrate no obvious acute pathology. Impression: Multiple subpleural bullae are seen bilaterally involving the upper and to a lesser extent the lower lobes probably on the basis of emphysema and less likely chronic interstitial lung disease. There is slightly increased opacity within the right upper lobe posteriorly abutting the oblique fissure which may represent a very small infiltrate versus localized atelectasis. Nonspecific mediastinal, bilateral hilar and bilateral axillary lymphadenopathy is noted. Reported By: Clint Worrell MD 07/30/182121 CT Head without contrast There is no evidence of any intracerebral hemorrhage, mass lesion or midline shift. There is no evidence of an acute subdural hematoma. No CT evidence of acute infarct. No fractures are identified. Impression: No acute bleed or mass or fracture.No CT evidence of acute infarct. PRELIMINARY REPORT PROVIDED BY RADIOLOGIST HEEL PAINTER Laboratory Tests 07/27/18 07/28/18 07/28/18 15:23 06:00 06:24 D-Dimer Methadone Screen Positive A* Benzodiazepines Screen Positive A* Influenza A (Rapid) Negative Influenza B (Rapid) Negative RSV Rapid Negative 07/30/18 14:05 D-Dimer 1003 H Methadone Screen Benzodiazepines Screen Influenza A (Rapid) Influenza B (Rapid) RSV Rapid Microbiology 08/01/18 16:15 Blood - Peripheral Venous Blood Culture - Preliminary NO GROWTH OBTAINED AFTER 48 HOURS, INCUBATION TO CONTINUE FOR 3 DAYS. 08/01/18 16:15 Blood - Peripheral Venous Blood Culture - Preliminary NO GROWTH OBTAINED AFTER 48 HOURS, INCUBATION TO CONTINUE FOR 3 DAYS. 08/01/18 11:50 Elbow - Right Gram Stain - Final 08/01/18 11:50 Elbow - Right Wound Culture - Final NO GROWTH OF AEROBIC ORGANISMS AFTER 48 HOURS INCUBATION 08/01/18 11:50 Elbow - Left Gram Stain - Final 08/01/18 11:50 Elbow - Left Wound Culture - Final NO GROWTH OF AEROBIC ORGANISMS AFTER 48 HOURS INCUBATION 07/28/18 06:30 Nasopharyngeal Swab Respiratory Virus (PCR) - Final 07/29/18 16:15 Nares - Mrsa Screen - Right MRSA Screen - Final NO MRSA ISOLATED ASSESSMENT AND PLAN: Patient is a 52yo female with PMHx of Asthma, Anxiety, and arthritis, Hx of drug use on methadone and active smoker who presented with SOB x 2 days. # Acute right elbow abscess on Vancomycin now, surgery is on the case as well for possible drainage. s/p clindamycin. As per ID if culture is negative, will send the patient home on oral keflex for 7 days as per ID. #Acute asthma exacerbation: improving, continue current therapy, Pulm. consult appreciated, cont steroids , cont Nebs , bipap prn. need sleep study. will discharge the patient home on oxygen. # ACute diastolic dysfunction resolved ( report reviewed) hold off lasix # New onset DM. start metformin at dc # hyperkalemia ; resolved # Headache: improved .CT of head neg , cont tylenol PRN # L supraclavicular lymph node. she was advised to follow with GI for EGd to r/ o any gastric malignancy #Methadone dependence : cont methadone 55 mg daily. DVT px : lovenox
[2018-08-03] MEDS: methylPREDNISolone NA SUCC 40 MG/1 ML VIAL IVPUSH SCH ×2 (02:10→09:32)
[2018-08-03] MEDS ORDERED: METHADONE HCL 40 MG DISPERSABLE TABLET ONE (05:57)
[2018-08-03] MEDS ORDERED: METHADONE HCL 5 MG TABLET ONE (05:57)
[2018-08-03] MEDS ORDERED: METHADONE 40 MG, METHADONE 15 MG PO SCH (06:00)
[2018-08-03] MEDS: VANCOMYCIN 1 GRAM (PRE-DOCKED) 1,000 MG/250 ML BAG IVPB SCH (06:38)
[2018-08-03] MEDS: INSULIN SLIDING SCALE (NOVOLOG) 1 VIAL SQ SCH ×2 (06:43→11:56)
[2018-08-03] MEDS ORDERED: ACETYLCYSTEINE 20% 200MG/ML 30 ML VIAL *FOR ORAL / INH USE ONLY NEB SCH (08:00)
[2018-08-03] MEDS ORDERED: ACETYLCYSTEINE 20% 200MG/ML 4 ML VIAL *FOR ORAL / INH USE ONLY NEB SCH (08:00)
[2018-08-03 08:34] LABS: HEMATOCRIT 48.3 % (32.4-45.2); HEMOGLOBIN 15.6 GM/dL (10.7-15.3); MCH 26.9 pg (25.7-33.7); MCHC 32.4 g/dl (32.0-36.0); MEAN CELL VOLUME 83.1 fl (80-96); MEAN PLT VOLUME 8.1 fl (7.5-11.1); PLATELET COUNT 242 K/MM3 (134-434); RBC 5.82 M/mm3 (3.60-5.2); RDW 16.4 % (11.6-15.6); WHITE BLOOD COUNT 9.8 K/mm3 (4.0-10.0)
[2018-08-03] MEDS: ALBUTEROL SO4 0.083% IH SOL 2.5 MG/3 ML VIAL.NEB. NEB SCH ×2 (08:43→11:46)
[2018-08-03 09:08] LABS: ANION GAP 10 MMOL/L (8-16); BLOOD UREA NITROGEN 22 mg/dL (7-18); CALCIUM 8.3 mg/dL (8.5-10.1); CHLORIDE 94 mmol/L (98-107); CO2 29 mmol/L (21-32); CREATININE 0.9 mg/dL (0.55-1.3); GLUCOSE,RANDOM 237 mg/dL (74-106); MAGNESIUM 2.2 mg/dL (1.8-2.4); PHOSPHOROUS 3.7 mg/dL (2.5-4.9); POTASSIUM 4.2 mmol/L (3.5-5.1); SODIUM 133 mmol/L (136-145)
[2018-08-03] MEDS ORDERED: PARoxetine HCL 10 MG TABLET (FP) ONE (09:18)
[2018-08-03] MEDS ORDERED: PT OWN MED DRAWER 7, Y5N ONE (09:18)
[2018-08-03] MEDS: AZITHROMYCIN IVPB 250 MG in DEXTROSE 5%-WATER - 250 ML IVPB SCH (09:32)
[2018-08-03] MEDS: risperiDONE 1 MG TABLET (FP) PO SCH (09:32)
[2018-08-03] MEDS ORDERED: ENOXAPARIN NA (PORCINE) 40 MG/0.4 ML DISP.SYRIN SQ SCH (10:00)
[2018-08-03] MEDS ORDERED: PARoxetine HCL 20 MG TABLET (FP) PO SCH (10:00)
--- NOTE | 2018-08-03 11:22 | PN ---
Progress Note (short form) - Note Progress Note: Feels overall better. Portable O2 at the bedside. No acute events overnight. Intake & Output 07/31/18 08/01/18 08/02/18 08/03/18 23:59 23:59 23:59 23:59 Intake Total 860 980 850 100 Balance 860 980 850 100 Weight 200 lb Last Vital Signs Temp Pulse Resp BP Pulse Ox 98 F 89 20 107/52 L 91 L 08/03/18 08:45 08/03/18 08:45 08/03/18 08:45 08/03/18 08:45 08/02/18 21:00 Active Medications Acetaminophen (Tylenol -) 650 mg PO Q6H PRN PRN Reason: HEADACHE Acetylcysteine (Mucomyst 20 Oral / Inh Use Only*) 600 mg NEB RBID [facility] Albuterol Sulfate (Ventolin 0.083% Nebulizer Soln -) 1 amp NEB Q6H PRN PRN Reason: SHORT OF BREATH/WHEEZING Albuterol Sulfate (Ventolin 0.083% Nebulizer Soln -) 1 amp NEB RQID [facility] Last Admin: 08/03/18 08:43 Dose: 1 amp Albuterol/Ipratropium (Duoneb -) 1 amp NEB Q4H PRN PRN Reason: SHORTNESS OF BREATH Last Admin: 08/01/18 01:30 Dose: 1 amp Bacitracin (Bacitracin -) 1 applic TP BID [facility] Last Admin: 08/02/18 21:38 Dose: Not Given Enoxaparin Sodium (Lovenox -) 40 mg SQ DAILY [facility] Last Admin: 08/03/18 09:30 Dose: 40 mg Azithromycin 250 mg/ Dextrose 250 mls @ 250 mls/hr IVPB DAILY [facility] Last Admin: 08/03/18 09:32 Dose: 250 mls/hr Vancomycin HCl (Vancomycin (Pre-Docked)) 1,000 mg in 250 mls @ 166.667 mls/hr IVPB BID@0500,1700 [facility]; Protocol Last Admin: 08/03/18 06:38 Dose: 166.667 mls/hr Insulin Aspart (Novolog Vial Sliding Scale -) 1 vial SQ TIDAC [facility]; Protocol Last Admin: 08/03/18 06:43 Dose: 2 units Methadone HCl 40 mg/ Methadone (HCl 15 mg) 55 mg PO 0600 [facility] Last Admin: 08/03/18 06:39 Dose: 55 mg Pantoprazole Sodium (Protonix -) 40 mg PO DAILY [facility] Last Admin: 08/02/18 14:34 Dose: 40 mg Paroxetine HCl (Paxil -) 20 mg PO DAILY [facility] Last Admin: 08/03/18 09:31 Dose: 20 mg Prednisone (Deltasone -) 40 mg PO DAILY [facility] Risperidone (Risperdal -) 2 mg PO BID [facility] Last Admin: 08/03/18 09:32 Dose: 2 mg Gen: NAD at rest Heart: RRR Lung: scattered rhonchi, No wheezes Abd: soft, nontender Ext: no edema Laboratory Results - last 24 hr 08/02/18 08/02/18 08/02/18 11:26 16:15 22:57 WBC RBC Hgb Hct MCV MCH MCHC RDW Plt Count MPV Sodium Potassium Chloride Carbon Dioxide Anion Gap BUN Creatinine Creat Clearance w eGFR POC Glucometer 118 189 175 Random Glucose Calcium Phosphorus Magnesium 08/03/18 08/03/18 08/03/18 06:41 07:30 07:30 WBC 9.8 RBC 5.82 H Hgb 15.6 H Hct 48.3 H MCV 83.1 MCH 26.9 MCHC 32.4 RDW 16.4 H Plt Count 242 MPV 8.1 Sodium 133 L Potassium 4.2 Chloride 94 L Carbon Dioxide 29 Anion Gap 10 BUN 22 H Creatinine 0.9 Creat Clearance w eGFR > 60 POC Glucometer 178 Random Glucose 237 H Calcium 8.3 L Phosphorus 3.7 Magnesium 2.2 A/P Acute Hypoxic Respiratory Failure Acute COPD Exacerbation Pneumonia Low suspicion of Interstitial Lung Disease LV Diastolic Dysfunction Likely JACKIE Smoker - Change to 5 day course of Prednisone 40mg - inhaled bronchodilators - O2 to keep SpO2 >90% - complete antibiotics - smoking cessation - outpt PFTs, PSG - DVT prophylaxis - D/C planning Dr Porter
[2018-08-03] MEDS ORDERED: predniSONE 20 MG TABLET (UD) PO SCH (11:30)
[2018-08-03] MEDS: PANTOPRAZOLE 40 MG TABLET (FP) PO SCH (11:53)
[2018-08-03] MEDS: BACITRACIN 15 GM TUBE TOPICAL OINTMENT TP SCH (12:30)
[2018-08-03 14:25] VITALS: BP 129/86; PULSE 114; TEMP 98.1
--- NOTE | 2018-08-03 14:42 | PN ---
Progress Note (short form) - Note Progress Note: much improved today doing well no complaints Vital Signs Period Temp Pulse Resp BP Sys/Ortiz Pulse Ox Last 24 Hr 98 F-99.0 F 71-114 20-22 107-151/52-90 91-92 cor-rrr lungs clear abd soft,nt ext elbows are dry no pus CBC, BMP 08/03/18 07:30 08/03/18 07:30 Microbiology 08/01/18 11:50 Elbow - Right Gram Stain - Final 08/01/18 11:50 Elbow - Right Wound Culture - Final NO GROWTH OF AEROBIC ORGANISMS AFTER 48 HOURS INCUBATION 08/01/18 11:50 Elbow - Left Gram Stain - Final 08/01/18 11:50 Elbow - Left Wound Culture - Final NO GROWTH OF AEROBIC ORGANISMS AFTER 48 HOURS INCUBATION 08/01/18 16:15 Blood - Peripheral Venous Blood Culture - Preliminary NO GROWTH OBTAINED AFTER 24 HOURS, INCUBATION TO CONTINUE FOR 4 DAYS. 08/01/18 16:15 Blood - Peripheral Venous Blood Culture - Preliminary NO GROWTH OBTAINED AFTER 24 HOURS, INCUBATION TO CONTINUE FOR 4 DAYS. 07/28/18 06:30 Nasopharyngeal Swab Respiratory Virus (PCR) - Final 07/29/18 16:15 Nares - Mrsa Screen - Right MRSA Screen - Final NO MRSA ISOLATED a/p no drainage from elbows can switch to po keflex please call back if needed breathing and edema impoved as well abdominal pain resolved reports she is hiv negative declines repeat testing
--- NOTE | 2018-08-03 14:56 | DS ---
Physical Exam: SUBJECTIVE: Patient seen and examined Patient is comfortable with no acute distress, going home on oxygen. OBJECTIVE: Vital Signs Temperature 98.1 F 08/03/18 14:24 Pulse Rate 114 H 08/03/18 14:24 Respiratory Rate 20 08/03/18 14:24 Blood Pressure 129/86 08/03/18 14:24 O2 Sat by Pulse Oximetry (%) 92 L 08/03/18 09:00 PHYSICAL EXAM GENERAL: The patient is awake, alert, and fully oriented, in no acute distress. HEAD: Normal with no signs of trauma. EYES: PERRL, extraocular movements intact, sclera anicteric, conjunctiva clear. ENT: Ears normal, oropharynx clear without exudates, moist mucous membranes. NECK: Trachea midline, full range of motion, supple. LUNGS: clear to auscultation bilaterally, no wheezes, no crackles, no accessory muscle use. HEART: Regular rate and rhythm, S1, S2 without murmur, rub or gallop. ABDOMEN: Soft, nontender, nondistended, normoactive bowel sounds, no guarding, no rebound, no hepatosplenomegaly, no masses. EXTREMITIES: 2+ pulses, warm, well-perfused, no edema. Elbows no further drainage noted, dried up. NEUROLOGICAL: Cranial nerves II through XII grossly intact. Normal speech, gait is stable . PSYCH: Normal mood, normal affect. SKIN: Warm, dry, normal turgor, no rashes or lesions noted. LABS Laboratory Results - last 24 hr 08/02/18 08/02/18 08/03/18 16:15 22:57 06:41 WBC RBC Hgb Hct MCV MCH MCHC RDW Plt Count MPV Sodium Potassium Chloride Carbon Dioxide Anion Gap BUN Creatinine Creat Clearance w eGFR POC Glucometer 189 175 178 Random Glucose Calcium Phosphorus Magnesium 08/03/18 08/03/18 08/03/18 07:30 07:30 11:55 WBC 9.8 RBC 5.82 H Hgb 15.6 H Hct 48.3 H MCV 83.1 MCH 26.9 MCHC 32.4 RDW 16.4 H Plt Count 242 MPV 8.1 Sodium 133 L Potassium 4.2 Chloride 94 L Carbon Dioxide 29 Anion Gap 10 BUN 22 H Creatinine 0.9 Creat Clearance w eGFR > 60 POC Glucometer 129 Random Glucose 237 H Calcium 8.3 L Phosphorus 3.7 Magnesium 2.2 CBCD WBC 9.8 K/mm3 (4.0-10.0) 08/03/18 07:30 RBC 5.82 M/mm3 (3.60-5.2) H 08/03/18 07:30 Hgb 15.6 GM/dL (10.7-15.3) H 08/03/18 07:30 Hct 48.3 % (32.4-45.2) H 08/03/18 07:30 MCV 83.1 fl (80-96) 08/03/18 07:30 MCHC 32.4 g/dl (32.0-36.0) 08/03/18 07:30 RDW 16.4 % (11.6-15.6) H 08/03/18 07:30 Plt Count 242 K/MM3 (134-434) 08/03/18 07:30 MPV 8.1 fl (7.5-11.1) 08/03/18 07:30 CMP Sodium 133 mmol/L (136-145) L 08/03/18 07:30 Potassium 4.2 mmol/L (3.5-5.1) 08/03/18 07:30 Chloride 94 mmol/L (98-107) L 08/03/18 07:30 Carbon Dioxide 29 mmol/L (21-32) 08/03/18 07:30 Anion Gap 10 MMOL/L (8-16) 08/03/18 07:30 BUN 22 mg/dL (7-18) H 08/03/18 07:30 Creatinine 0.9 mg/dL (0.55-1.3) 08/03/18 07:30 Creat Clearance w eGFR > 60 (>60) 08/03/18 07:30 Random Glucose 237 mg/dL (74-106) H 08/03/18 07:30 Calcium 8.3 mg/dL (8.5-10.1) L 08/03/18 07:30 Total Bilirubin 0.3 mg/dL (0.2-1) 07/28/18 05:30 AST 10 U/L (15-37) L 07/28/18 05:30 ALT 16 U/L (13-61) 07/28/18 05:30 Alkaline Phosphatase 111 U/L (45-117) 07/28/18 05:30 Total Protein 6.9 g/dl (6.4-8.2) 07/28/18 05:30 Albumin 2.8 g/dl (3.4-5.0) L 07/28/18 05:30 CARDIAC ENZYMES Creatine Kinase 206 U/L (26-192) H 07/27/18 15:23 Troponin I < 0.02 ng/ml (0.00-0.05) 07/27/18 15:23 Current Medications Generic Name Dose Route Start Last Admin Trade Name Freq PRN Reason Stop Dose Admin Acetaminophen 650 mg 08/02/18 20:14 Tylenol - PO Q6H PRN HEADACHE Acetylcysteine 600 mg 08/03/18 08:00 Mucomyst 20 Oral / Inh Use Only* NEB RBID JOSEPH Albuterol Sulfate 1 amp 08/02/18 20:14 Ventolin 0.083% Nebulizer Soln - NEB Q6H PRN SHORT OF BREATH/WHEEZING Albuterol Sulfate 1 amp 08/03/18 08:00 08/03/18 11:46 Ventolin 0.083% Nebulizer Soln - NEB 1 amp RQID JOSEPH Administration Albuterol/Ipratropium 1 amp 07/30/18 13:24 08/01/18 01:30 Duoneb - NEB 1 amp Q4H PRN Administration SHORTNESS OF BREATH Bacitracin 1 applic 08/02/18 22:00 08/03/18 12:30 Bacitracin - TP 1 applic BID JOSEPH Administration Cephalexin HCl 500 mg 08/03/18 22:00 Keflex - PO TID JOSEPH Enoxaparin Sodium 40 mg 08/03/18 10:00 08/03/18 09:30 Lovenox - SQ 40 mg DAILY [facility] Administration Azithromycin 250 mg/ Dextrose 250 mls @ 250 mls/hr 07/31/18 10:00 08/03/18 09 :32 IVPB 250 mls/hr DAILY [facility] Administration Insulin Aspart 1 vial 08/03/18 07:00 08/03/18 11:56 Novolog Vial Sliding Scale - SQ Not Given TIDAC [facility] Protocol Methadone HCl 40 mg/ Methadone 55 mg 08/03/18 06:00 08/03/18 06:39 HCl 15 mg PO 55 mg 0600 JOSEPH Administration Pantoprazole Sodium 40 mg 08/01/18 11:00 08/03/18 11:53 Protonix - PO 40 mg DAILY JOSEPH Administration Paroxetine HCl 20 mg 08/03/18 10:00 08/03/18 09:31 Paxil - PO 20 mg DAILY [facility]SEPH Administration Prednisone 40 mg 08/03/18 11:30 08/03/18 12:30 Deltasone - PO 40 mg DAILY [facility]SE[facility] Administration Risperidone 2 mg 08/02/18 22:00 08/03/18 09:32 Risperdal - PO 2 mg BID JOSEPH Administration Home Medications Medication Instructions Recorded Budesonide/Formeterol Fumarate 1 puff IN DAILY 07/27/18 [SYMBICORT 160/4.5mcg -] Methadone [Dolophine -] 55 mg PO DAILY 07/27/18 Paroxetine HCl [Paxil] 20 mg PO DAILY 07/27/18 Risperidone 2 mg PO BID 07/27/18 Chest CTA :Clinical information: hypoxemia; evaluate for pulmonary embolism multiplanar imaging was performed following the intravenous bolus administration of nonionic contrast. No prior CT studies are available at this facility for direct comparison. Multiple subpleural bullae are seen within the upper lung mayer bilaterally and to a lesser extent involving the superior segments of the lower lobes. Note is also made of slightly increased opacity within the posterior segment of the right upper lobe abutting the oblique fissure which may represent a very small infiltrate versus focal atelectasis. No pleural effusion is seen. An enlarged homogeneous subcarinal mediastinal lymph node is noted with a 1.7 cm short axis diameter. Several mildly enlarged bilateral hilar lymph nodes are seen. An enlarged 1.7 x 1.4 cm left axillary lymph node is noted. There is also a mildly enlarged 1.5 x 1.1 cm right axillary lymph node. The trachea and central bronchi appear unremarkable. There is no definite cardiac enlargement. No pericardial effusion is seen. No aortic aneurysm is noted. The osseous structures demonstrate no obvious acute pathology. Impression: Multiple subpleural bullae are seen bilaterally involving the upper and to a lesser extent the lower lobes probably on the basis of emphysema and less likely chronic interstitial lung disease. There is slightly increased opacity within the right upper lobe posteriorly abutting the oblique fissure which may represent a very small infiltrate versus localized atelectasis. Nonspecific mediastinal, bilateral hilar and bilateral axillary lymphadenopathy is noted. Reported By: Clint Worrell MD 07/30/182121 CT Head without contrast There is no evidence of any intracerebral hemorrhage, mass lesion or midline shift. There is no evidence of an acute subdural hematoma. No CT evidence of acute infarct. No fractures are identified. Impression: No acute bleed or mass or fracture.No CT evidence of acute infarct. PRELIMINARY REPORT PROVIDED BY RADIOLOGIST METAL MINER Laboratory Tests 07/27/18 07/28/18 07/28/18 15:23 06:00 06:24 D-Dimer Methadone Screen Positive A* Benzodiazepines Screen Positive A* Influenza A (Rapid) Negative Influenza B (Rapid) Negative RSV Rapid Negative 07/30/18 14:05 D-Dimer 1003 H Methadone Screen Benzodiazepines Screen Influenza A (Rapid) Influenza B (Rapid) RSV Rapid HOSPITAL COURSE: Date of Admission:07/27/18 Date of Discharge: 08/03/18 Patient is a 52yo female with PMHx of Asthma, Anxiety, and arthritis, Hx of drug use on methadone and active smoker who presented with SOB x 2 days. #Acute asthma exacerbation: improving, continue current therapy, follow up with Pulm. consult appreciated, cont steroids , cont Nebs , need sleep study as outpatient. tapered dose steroid, oxygen for home, since saturating 86% on rm air on ambulation. # Acute right elbow abcess s/p on clindamycin, s/p IV Vancomycin, patient' s wound culture is negative,seen by ID , will discharge patient home on oral keflex x 7 days as per ID. # ACute diastolic dysfunction resolved ( report reviewed). # hyperkalemia ; resolved # LIZAMA;improved .CT of head neg . # L supraclavicular lymph node. she was advised to follow with GI for EGd to r/ o any gastric malignancy #Methadone dependence : cont methadone 55 mg daily. # New onset DM. start metformin at dc DVT px : lovenox Minutes to complete discharge: 45 Discharge Summary Reason For Visit: NEW ON SET OF CONGESTIVE HEART FAILURE Current Active Problems Tobacco abuse counseling (Acute) Asthma (Chronic) Diabetes (Chronic) Tobacco abuse (Chronic) Condition: Stable - Instructions Diet, Activity, Other Instructions: You came to the hospital with complaints of shortness of breath and chest tightness. due to asthma You wiull be discharged om Prednisone Taper Please take 40 mg for one day 30 mg prednisone for 2 days 20 mg prednisone 2 day 10 mg prednisone 1 day You were found to have diabetes we will start you on new medication Metformin 500 mg er daily. Follow up : Left supraclavicular lymph node. she was advised to follow with [facility] to rule out any gastric malignancy \ Follow up with Pulmonary for sleep study Please follow up with Dr Dunbar within one week Please follow up with pulmonary Héctor Badillo within one week If you develop fever, chills, shortness of breath or chest pain please return to the hospital. Referrals: Kamran Dunbar MD [Staff Physician] - 1 Week Héctor Tyler MD, MD [Staff Physician] - 1 Week Berny Bustillos MD [Staff Physician] - 1 Week Disposition: HOME - Home Medications Comprehensive Discharge Medication List: Ambulatory Orders Budesonide/Formeterol Fumarate [SYMBICORT 160/4.5mcg -] 1 puff IN DAILY Methadone [Dolophine -] 55 mg PO DAILY 07/27/18 Paroxetine HCl [Paxil] 20 mg PO DAILY 07/27/18 Risperidone 2 mg PO BID 07/27/18 This patient is new to me today: No Emergency Visit: Yes ED Registration Date: 07/27/18 Care time: The patient presented to the Emergency Department on the above date and was hospitalized for further evaluation of their emergent condition. Critical Care patient: No - Discharge Referral Referred to [facility] No
[2018-08-03] MEDS ORDERED: CEPHALEXIN MONOHYDRATE 500 MG CAPSULE (UD) PO SCH (22:00)
== END 2018-08-03 16:28 | disposition home or self-care (01) | DRG 140 ==
LOC: JER 14:45 → JERBED 16:41 → J4W 22:25 → J7W 07-31 12:49
PROVIDERS: ADMIT Internal Medicine; ATTEND Internal Medicine
DX: J44.1 Chronic obstructive pulmonary disease with (acute) exacerbation (principal); J96.01 Acute respiratory failure with hypoxia; F41.9 Anxiety disorder, unspecified; R00.0 Tachycardia, unspecified; E87.5 Hyperkalemia; L02.91 Cutaneous abscess, unspecified; M06.9 Rheumatoid arthritis, unspecified; E11.9 Type 2 diabetes mellitus without complications; F17.210 Nicotine dependence, cigarettes, uncomplicated; I50.31 Acute diastolic (congestive) heart failure; R51 Headache; L73.2 Hidradenitis suppurativa; F41.8 Other specified anxiety disorders; E66.9 Obesity, unspecified; Z68.39 Body mass index [BMI] 39.0-39.9, adult; I45.10 Unspecified right bundle-branch block; R42 Dizziness and giddiness; F11.20 Opioid dependence, uncomplicated; G47.33 Obstructive sleep apnea (adult) (pediatric); J18.9 Pneumonia, unspecified organism; K59.00 Constipation, unspecified
CPT/HCPCS: 36415; 70450-TC; 71045-TC-FY; 71275-TC; 80048; 80053; 80307; 81003; 82550; 82553; 82570; 82962; 83036; 83735; 83880; 84100; 84156; 84300; 84443; 84484; 85025; 85027; 85379; 85610; 85651; 85730; 87040; 87070; 87081; 87205; 87633; 87804; 87807; 93005; 93010; 93306-TC; 94640; 94660; 94761; 99285-25; J2794